=== PATIENT | female | born 1985 | race Two or more races ===

== ENCOUNTER 2021-05-06 20:35 | Emergency (ER) | payer MEDICAID, OTHER ==
[~2021-05-06] VITALS: Ht 157.5 cm; Wt 82.6 kg
[2021-05-06 20:41] VITALS: BP 124/80
[2021-05-06 21:19] LABS: Basophils # (auto) 0 10 ^3/uL (0-0.2); Basophils % (auto) 0.7 % (0.0-2.0); Eosinophils # (auto) 0.2 10 ^3/uL (0-0.8); Hematocrit 37.9 % (36.0-46.0); Hemoglobin 13.1 g/dL (12.2-16.2); Lymphocytes # (auto) 2.1 10 ^3/uL (0.4-5.4); Lymphocytes % (auto) 28.6 % (10.0-50.0); Mean Corpuscular Hemoglobin 30.7 pg (28.0-32.0); Mean Corpuscular Hgb Conc. 34.7 g/dL (32.0-36.0); Mean Corpuscular Volume 88.6 fL (80.0-100.0); Monocytes # (auto) 0.4 10 ^3/uL (0-1.3); Monocytes % (auto) 4.9 % (0.0-12.0); Neutrophils # (auto) 4.6 10 ^3/uL (1.6-8.6); Neutrophils % (auto) 62.8 % (37.0-80.0); Nucleated Red Blood Cells % 0.2 %; Platelet Count (auto) 229 10^3/uL (140-450); Red Blood Cells 4.27 10^6/uL (4.0-5.20); Red Cell Distribution Width 13.2 % (11.8-14.3); White Blood Cell 7.3 10^3/uL (4.4-10.8)
[2021-05-06 21:28] LABS: Albumin 3.3 g/dL (3.4-5.0); Calcium 9.5 mg/dL (8.5-10.1); Potassium 3.5 mmol/L (3.5-5.1)
[2021-05-06 21:33] LABS: Bilirubin, Total 0.3 mg/dL (0.2-1.0); Total Protein 6.7 g/dL (6.4-8.2)
[2021-05-06] MEDS ORDERED: KETOROLAC TROMETH 60MG/2ML VIAL IM ONE (22:30)
== END 2021-05-06 22:46 | disposition home or self-care (01) ==
LOC: ER 20:38
DX: G43.909 Migraine, unspecified, not intractable, without status migrainosus (principal)
CPT/HCPCS: 36415; 70450; 80053; 84702; 85025; 96372; 99284; J1885

== ENCOUNTER 2023-10-13 17:16 | Emergency (ER) | payer MEDICAID ==
[~2023-10-13] VITALS: Ht 157.5 cm; Wt 90.0 kg
[2023-10-13 17:30] VITALS: BP 119/65; PULSE 75; RESP 16; O2SAT 100
[2023-10-13 19:09] LABS: Urine Bacteria FEW /hpf (None Seen); Urine Blood Negative /uL (Negative); Urine Clarity Clear (Clear); Urine Color Yellow (Yellow); Urine Mucus FEW (None Seen); Urine Protein, UAD Negative (Negative); Urine Specific Gravity 1.027 (1.001-1.035); Urine Urobilinogen Normal (Negative); Urine WBC 1 /hpf (0 - 5); Urine pH 5.5 (5.0-8.0)
== END 2023-10-14 00:06 | disposition left against medical advice (07) ==
LOC: ER 17:16
DX: R10.9 Unspecified abdominal pain (principal); R30.9 Painful micturition, unspecified; Z53.21 Procedure and treatment not carried out due to patient leaving prior to being seen by health care provider
CPT/HCPCS: 81001

== ENCOUNTER 2024-02-01 09:31 | Emergency (ER) | payer MEDICAID ==
[~2024-02-01] VITALS: Ht 157.5 cm; Wt 88.9 kg
[2024-02-01 11:19] VITALS: TEMP 97.8; O2SAT 97
[2024-02-01 11:52] VITALS: BP 110/53; PULSE 67; RESP 18
[2024-02-01] MEDS: MORPHINE SULFATE 4 MG/ML SYR/VIAL IM ONE (11:52)
[2024-02-01] MEDS ORDERED: HYDR-4902 PO (12:02)
== END 2024-02-01 12:14 | disposition home or self-care (01) ==
LOC: ER 09:31
DX: S22.31XA Fracture of one rib, right side, initial encounter for closed fracture (principal); W17.89XA Other fall from one level to another, initial encounter; Y93.A3 Activity, aerobic and step exercise; Y92.89 Other specified places as the place of occurrence of the external cause; Y99.8 Other external cause status
CPT/HCPCS: 71101; 96372; 99283; J2270

== ENCOUNTER 2025-07-22 12:40 | Inpatient (IN) | payer MEDICAID, SELFPAY ==
[~2025-07-22] VITALS: Ht 157.5 cm; Wt 77.2 kg
[~2025-07-22 12:40] MED LIST: HYDR-4902 PO
--- NOTE | 2025-07-22 12:58 | ED.PDOC ---
History of Present Illness HPI Comments 39F presents to the ER w/ prior MHx of right sided kidney stones: SHx of C- section and the c/c of right sided flank pain. Pt reports on having chills this morning, then started to have right sided flank pain 20 minutes ago associated w/ N/V. Pt notes on having a 10/10 pain. Denies chills, fever, /D, SOB, CP. Denies any other associated symptom's, modifiers, or recent injuries or sick contact at this time. Chief Complaint: Flank Pain Time Seen by MD: 13:00 Primary Care Provider: ELIEL Reviewed Notes: Nurses Notes, Medications, Allergies Allergies: Coded Allergies: NO KNOWN ALLERGIES (Unverified , 05/06/21) Home Meds Active Scripts Hydrocodone-Acetaminophen (Hydrocodone Bitartrate/AC 5-325 mg) 1 Tab Tab, 1 TAB PO Q6HPRN PRN for 10 Days, #40 TAB 0 Refills Prov:JONNY TUCKER [employer] 02/01/24 Information Source: Patient Mode of Arrival: Ambulatory Severity: Moderate Timing: Minutes Duration: Since onset, Minutes Prehospital treatment: None Past Medical History PAST MEDICAL HISTORY: Kidney Stones (right side) Surgical History: MEDIATION COMMISSIONER History: No Pertinent MEDIATION COMMISSIONER History Family History Family History: Reviewed,noncontributory to illness, Unknown Social History Smoker: Non-Smoker Alcohol: Denies ETOH Use Drugs: Denies Drug Use Lives In: Home Constitutional: denies: chills, diaphoresis, fatigue, fever, malaise, sweats, weakness, others EENTM: denies: blurred vision, double vision, ear bleeding, ear discharge, ear drainage, ear pain, ear ringing, eye pain, eye redness, hearing loss, mouth pain, mouth swelling, nasal discharge, nose bleeding, nose congestion, nose pain, photophobia, tearing, throat pain, throat swelling, voice changes, others Respiratory: denies: cough, hemoptysis, orthopnea, SOB at rest, shortness of breath, SOB with excertion, stridor, wheezing, others Cardiovascular: denies: chest pain, dizzy spells, diaphoresis, Dyspnea on exertion, edema, irregular heart beat, left arm pain, lightheadedness, palpitations, PND, syncope, others Gastrointestinal: reports: nausea, vomiting; denies: abdomen distended, abdominal pain, blood streaked bowels, constipated, diarrhea, dysphagia, difficulty swallowing, hematemesis, melena, poor appetite, poor fluid intake, rectal bleeding, rectal pain, others Genitourinary: reports: flank pain; denies: abnormal vagina bleeding, burning, dyspareunia, dysuria, frequency, hematuria, incontinence, pain, , vagina discharge, urgency, others Neurological: denies: dizziness, fainting, headache, left sided numbness, left sided weakness, numbness, paresthesia, pre-existing deficit, right sided numbness, right sided weakness, seizure, speech problems, tingling, tremors, weakness, others Musculoskeletal: denies: back pain, gout, joint pain, joint swelling, muscle pain, muscle stiffness, neck pain, others Integumetry: denies: bruises, change in color, change in hair/nails, dryness, laceration, lesions, lumps, rash, wounds, others Allergic/Immunocompromised: denies: Difficulty Healing, Frequent Infections, Hives, Itching, others Hematologic/Lymphatic: denies: anemia, blood clots, easy bleeding, easy bruising, swollen glands, others Endocrine: denies: excessive hunger, excessive sweating, excessive thirst, excessive urination, flushing, intolerance to cold, intolerance to heat, unexplained weight gain, unexplained weight loss, others Psychiatric: denies: anxiety, bipolar disorder, depression, hopeless, panic disorder, schizophrenia, sleepless, suicidal, others All Other Systems: Reviewed and Negative Physical Exam General Appearance: Moderate Distress HEENT: Normal ENT Inspection, Pharynx Normal, TMs Normal Neck: Full Range of Motion, Non-Tender, Normal, Normal Inspection Respiratory: Chest Non-Tender, Lungs Clear, No Accessory Muscle Use, No Respiratory Distress, Normal Breath Sounds Cardiovascular: No Edema, No JVD, No Murmur, No Gallop, Normal Peripheral Pulses, Regular Rate/Rhythm Breast Exam: Deferred Gastrointestinal: No Organomegaly, Non Tender, No Pulsatile Mass, Normal Bowel Sounds, Soft Genitalia: Deferred Pelvic: Deferred Rectal: Deferred Extremities: No calf tenderness, Normal capillary refill, Normal inspection, Normal range of motion, Non-tender, No pedal edema Musculoskeletal : Location: Right Extremity Location: Back Apperance: Tenderness: Moderate Neurologic: Alert, sales representative canvas products II-XII nml as Tested, No Motor Deficits, Normal Affect, Normal Mood, No Sensory Deficits Cerebellar Function: Normal Reflexes: Normal Skin: Dry, Normal Color, Warm Lymphatic: No Adenopathy Was a procedure done? Was a procedure done?: No Differential Dx Considerations may include: Generalized weakness, electrolyte imbalance, dehydration X-Ray, Labs, Meds, VS Vital Signs Date Time Temp Pulse Resp B/P (MAP) Pulse Ox O2 Delivery O2 Flow Rate FiO2 07/22/25 13:32 99 15 142/56 07/22/25 13:30 Room Air* 0 21 07/22/25 13:30 98.1 56 15 142/51 (81) 99 98.1 07/22/25 12:41 98.0 77 18 145/86 97 98.0 Lab Test 07/22/25 14:06 07/22/25 13:14 Range/Units Urine Color Yellow Yellow Urine Clarity Turbid H Clear Urine pH 6.0 5.0-9.0 Urine Specific [place] 1.026 1.001-1.035 Urine Protein Trace H Negative Urine Ketones Negative Negative Urine Blood 2+ H Negative /uL Urine Nitrite Negative Negative Urine Bilirubin Negative Negative Urine Urobilinogen Normal Negative mg/dL Urine Leukocyte Esterase 1+ Negative /uL Urine RBC 26 0 - 4 /hpf Urine Microscopic WBC 30 H 0-5 /HPF Urine Squamous Epithelial Cells Mod <5 /hpf Urine Bacteria Few H None Seen /hpf Urine Mucus Few None Seen Urine Glucose Normal Normal mg/dL White Blood Count 6.7 4.4-10.8 10^3/uL Red Blood Count 4.71 4.0-5.20 10^6/uL Hemoglobin 14.3 12.2-16.2 g/dL Hematocrit 41.5 36.0-46.0 % Mean Corpuscular Volume 88.2 80.0-100.0 fL Mean Corpuscular Hemoglobin 30.3 28.0-32.0 pg Mean Corpuscular Hemoglobin Concent 34.4 32.0-36.0 g/dL Red Cell Distribution Width 13.3 11.8-14.3 % Platelet Count 239 140-450 10^3/uL Mean Platelet Volume 8.6 6.9-10.8 fL Neutrophils (%) (Auto) 69.6 37.0-80.0 % Lymphocytes (%) (Auto) 22.7 10.0-50.0 % Monocytes (%) (Auto) 5.8 0.0-12.0 % Eosinophils (%) (Auto) 1.3 0.0-7.0 % Basophils (%) (Auto) 0.6 0.0-2.0 % Neutrophils # (Auto) 4.7 1.6-8.6 10 ^3/uL Lymphocytes # (Auto) 1.5 0.4-5.4 10 ^3/uL Monocytes # (Auto) 0.4 0-1.3 10 ^3/uL Eosinophils # (Auto) 0.1 0-0.8 10 ^3/uL Basophils # (Auto) 0 0-0.2 10 ^3/uL Nucleated Red Blood Cells 0.0 % Sodium Level 142 136-145 mmol/L Potassium Level 3.8 3.5-5.1 mmol/L Chloride Level 108 H 98-107 mmol/L Carbon Dioxide Level 24 20-31 mmol/L Anion Gap 10 5-15 Blood Urea Nitrogen 10 9-23 mg/dL Creatinine 0.78 0.550-1.02 mg/dL Glomerular Filtration Rate Calc 98 >90 mL/min BUN/Creatinine Ratio 12.8 10.0-20.0 Serum Glucose 124 H 74-106 mg/dL Calcium Level 10.0 8.7-10.4 mg/dL Current Medications Medications (Trade) Dose Ordered Sig/Kisha Route Start Time Stop Time Status Last Admin Ondansetron HCl (Zofran) 4 mg ONCE ONCE IV 07/22/25 13:00 07/22/25 13:01 DC 07/22/25 13:33 Sodium Chloride 1,000 ml @ 1,000 mls/hr Q1H ONCE IVB 07/22/25 13:00 07/22/25 13:59 DC 07/22/25 13:33 Morphine Sulfate 4 mg ONCE ONCE IV 07/22/25 13:00 07/22/25 13:01 DC 07/22/25 13:32 Ketorolac Tromethamine (Toradol Injection) 30 mg ONCE ONCE IV 07/22/25 13:00 07/22/25 13:01 DC 07/22/25 13:33 IV Hep-Lock was established The patient was given a 1 L bolus of normal saline The patient was initially given ketorolac 60 mg IV push The patient was then given morphine 4 mg IV push and Zofran 4 mg IV push for the nausea The CBC is within normal limits The urine test is positive for UTI The chemistry panel is within normal limits The patient was given Rocephin 1 g IV piggyback The CAT scan of the abdomen and pelvis shows: IMPRESSION: Mild right hydro ureteronephrosis with a 3mm distal right ureteral kidney stone. Additional nonobstructive kidney stones are seen bilaterally. The patient is admitted Images Reviewed?: Images reviewed and evaluated by me Time of 1ST Reevaluation: 13:30 Reevaluation 1ST: Unchanged Patient Education/Counseling: Diagnosis, Treatment, Prognosis Family Education/Counseling: No Family Present SEPSIS Sepsis Screen Date sepsis recognized/suspect: Jul 22, 2025 Time Sepsis recognized/suspect: 1243 Recent Procedure: No On Antibiotic Therapy: No Respiratory Rate >20: No Heart Rate >90: No Temp<36 C (96.8 F) or >38.3 C: No SBP <90 or MAP <65 mmHG: No New Acute Mental Status Change: No Is the patient on CPAP, BIPAP,: No Physician Orders Ct Ab Pel Wo Con-No Oral Or Iv (07/22/25 12:51) Heplock Iv (07/22/25 12:51) Vital Signs Date Time Temp Pulse Resp B/P (MAP) Pulse Ox O2 Delivery O2 Flow Rate FiO2 07/22/25 13:32 99 15 142/56 07/22/25 13:30 Room Air* 0 21 07/22/25 13:30 98.1 56 15 142/51 (81) 99 98.1 07/22/25 12:41 98.0 77 18 145/86 97 98.0 Laboratory Tests Test 07/22/25 13:14 White Blood Count 6.7 10^3/uL (4.4-10.8) Medications Medications Dose Ordered Sig/Kisha Route Start Time Stop Time Status Last Admin Dose Admin Ketorolac Tromethamine 30 mg ONCE ONCE IV 07/22/25 13:00 07/22/25 13:01 DC 07/22/25 13:33 Morphine Sulfate 4 mg ONCE ONCE IV 07/22/25 13:00 07/22/25 13:01 DC 07/22/25 13:32 Ondansetron HCl 4 mg ONCE ONCE IV 07/22/25 13:00 07/22/25 13:01 DC 07/22/25 13:33 Sodium Chloride 1,000 ml @ 1,000 mls/hr Q1H ONCE IVB 07/22/25 13:00 07/22/25 13:59 DC 07/22/25 13:33 Departure 1 Departure Time of Disposition: 20:59 Impression: Primary Impression: Right flank pain Additional Impressions: Ureterolithiasis UTI (urinary tract infection) Qualified Codes: N30.01 - Acute cystitis with hematuria Disposition: ADMITTED INPATIENT Admit to: Med Surg Condition: Fair Critical Care Note Critical Care Time?: No Stability Stability form required: Yes Unstable for transfer: ED Physician Assesment (Clinical assesment) Heart Score Heart Score: Heart Score Response (Comments) Value History N/A 0 EKG N/A 0 Age N/A 0 Risk Factors N/A 0 Troponin N/A 0 Total 0 I personally scribed for LUANA WATTERS MD ([email or web address]) on 07/22/25 at 12:58. Electronically submitted by Robson Benites ([email or web address]). LUANA WATTERS MD Jul 22, 2025 12:58
--- NOTE | 2025-07-22 13:27 | DVH ---
CT CT AB PEL WO CON-NO ORAL OR IV INDICATION: right flank pain EXAM DATE: 07/22/2025 12:51 PM COMPARISON: None RADIATION DOSE: CTDIvol: 14 mGy, DLP: 750 mGy*cm PROCEDURE: Helical CT images were obtained of the abdomen and pelvis without IV contrast Sagittal and coronal reconstructions are provided. ORAL CONTRAST: None. ADDITIONAL IMAGES / REFORMATS: None All C T scans at this medical facility are performed using dose modulation techniques as appropriate to a p erformed exam including the following: Automated exposure control was utilized; adjustment of the MA and/or KV according to patient size; and use of iterative reconstruction technique. FINDINGS: LUNG BASE: Normal. LIVER: Normal. GALLBLADDER AND BILIARY TREE: No calcified gallstones. Normal caliber wall. No intra- or extrahepatic biliary ductal dilation. PANCREAS: Normal. SPLEEN: Normal. BOWEL: Normal. Normal appendix. ADRENALS: Normal. KIDNEYS AND URETER: Mild right hydro ureteronephrosis with a 3mm distal right ureteral kidney stone. Additional nonobstructive kidney stones are seen bilaterally. BLADDER: Normal. REPRODUCTIVE ORGANS: Normal. LYMPH NODES:No lymphadenopathy. PERITONEUM: No ascites or free air. No other fluid collection. VESSELS: Scattered atherosclerotic calcifications are noted. RETROPERITONEUM: Normal. ABDOMINAL WALL: Normal. BONES: Scattered osseous degenerative changes are noted. IMPRESSION: Mild right hydro ureteronephrosis with a 3mm distal right ureteral kidney stone. Additional nonobstru ctive kidney stones are seen bilaterally.
[2025-07-22] MEDS: MORPHINE SULFATE 4 MG/ML SYR/VIAL IV ONE (13:32)
[2025-07-22] MEDS: SODIUM CHLORIDE 0.9% 1,000 ML IVB ONE (13:33)
[2025-07-22] MEDS: KETOROLAC TROMETH 30 MG/ML 1ML VIAL IV ONE (13:33)
[2025-07-22] MEDS: ONDANSETRON HCL 4 MG/2 ML VIAL IV ONE (13:33)
[2025-07-22 13:39] LABS: Hematocrit 41.5 % (36.0-46.0); Hemoglobin 14.3 g/dL (12.2-16.2); Mean Corpuscular Hemoglobin 30.3 pg (28.0-32.0); Mean Corpuscular Volume 88.2 fL (80.0-100.0); Nucleated Red Blood Cells % 0.0 %
[2025-07-22 13:44] LABS: Potassium 3.8 mmol/L (3.5-5.1); Sodium 142 mmol/L (136-145)
[2025-07-22 13:45] LABS: Anion Gap 10 (5-15); Carbon Dioxide 24 mmol/L (20-31)
[2025-07-22 13:46] LABS: Calcium 10.0 mg/dL (8.7-10.4)
[2025-07-22 13:48] LABS: Chloride 108 mmol/L (98-107)
[2025-07-22 13:51] LABS: BUN/Creatinine Ratio 12.8 (10.0-20.0); Blood Urea Nitrogen 10 mg/dL (9-23); Glucose 124 mg/dL (74-106)
[2025-07-22 14:29] LABS: Urine Protein, UAD TRACE (Negative)
[2025-07-22] MEDS ORDERED: ACETAMINOPHEN 325 MG TAB PO PRN (19:30)
[2025-07-22 21:00] VITALS: BP 112/65; PULSE 68; RESP 19; TEMP 97.9; O2SAT 99
--- NOTE | 2025-07-22 21:36 | DVHHP2 ---
History of Present Illness Reason for Visit: Flank pain History of Present Illness 39-year-old female presents for evaluation of flank pain. Patient endorses a two day history of right-sided flank pain with associated chills. Patient also reports associated nausea with vomiting. Currently rates the pain at 8/10 intensity. No other acute complaints reported. Past Medical History Kidney stones Past Surgical History Family History Noncontributory Smoke: No ALCOHOL: none Drugs: None Lives: with Family Review of Systems Review of Systems Review of systems are currently negative otherwise addressed HPI. Allergies: Coded Allergies: NO KNOWN ALLERGIES (Unverified , 05/06/21) Medications Current Medications Medications Dose Ordered Sig/Kisha Route Start Time Stop Time Status Last Admin Dose Admin Tamsulosin HCl 0.4 mg QPM PO 07/23/25 18:00 Ceftriaxone Sodium 50 ml @ 100 mls/hr DAILY@ IV 07/23/25 09:00 Acetaminophen/ Hydrocodone Bitart 1 tab Q4HP PRN PO 07/22/25 19:30 Ondansetron HCl 4 mg Q4HP PRN IV 07/22/25 19:30 Acetaminophen 650 mg Q6HP PRN PO 07/22/25 19:30 Morphine Sulfate 2 mg Q6HPRN PRN IV 07/22/25 19:30 Ceftriaxone Sodium 50 ml @ 100 mls/hr DAILY@ IV 07/23/25 09:00 Exam Vital Signs Vital Signs Date Time Temp Pulse Resp B/P (MAP) Pulse Ox O2 Delivery O2 Flow Rate FiO2 07/22/25 13:32 99 15 142/56 07/22/25 13:30 Room Air* 0 21 07/22/25 13:30 98.1 99 98.1 Exam Gen: The patient eustachian 39-year-old female in mild distress. Skin: Warm, dry, normal color and texture, no rash. HEENT: Normocephalic atraumatic, mucous membranes moist and pink. Neck: Cervical and supraclavicular nodes normal without enlargement, trachea is midline, thyroid gland is normal without masses. Pulmonary: Clear to auscultation and percussion bilaterally. Cardiac: Regular rate and rhythm. No murmur Abdomen: Soft, nontender, nondistended, bowel sounds present all 4 quadrants, no guarding, no rigidity, no organomegaly. Extremities: No cyanosis, clubbing, no edema Neuro: Cranial nerves II through XII grossly intact, normal affect and speech, no focal motor deficits. Labs/Xrays ORDERING PHYSICIAN: LUANA WATTERS MD PROCEDURE(s): ABPL - CT AB PEL WO CON-NO ORAL OR IV REASON: right flank pain ORDER NUMBER(s): [id number], ACCESSION NUMBER(s): [id number] CT CT AB PEL WO CON-NO ORAL OR IV INDICATION: right flank pain EXAM DATE: 07/22/2025 12:51 PM COMPARISON: None RADIATION DOSE: CTDIvol: 14 mGy, DLP: 750 mGy*cm PROCEDURE: Helical CT images were obtained of the abdomen and pelvis without IV contrast Sagittal and coronal reconstructions are provided. ORAL CONTRAST: None. ADDITIONAL IMAGES / REFORMATS: None All CT scans at this medical facility are performed using dose modulation techniques as appropriate to a performed exam including the following: Automated exposure control was utilized; adjustment of the MA and/or KV according to patient size; and use of iterative reconstruction technique. FINDINGS: LUNG BASE: Normal. LIVER: Normal. GALLBLADDER AND BILIARY TREE: No calcified gallstones. Normal caliber wall. No intra- or extrahepatic biliary ductal dilation. PANCREAS: Normal. SPLEEN: Normal. BOWEL: Normal. Normal appendix. ADRENALS: Normal. KIDNEYS AND URETER: Mild right hydro ureteronephrosis with a 3mm distal right ureteral kidney stone. Additional nonobstructive kidney stones are seen bilaterally. BLADDER: Normal. REPRODUCTIVE ORGANS: Normal. LYMPH NODES:No lymphadenopathy. PERITONEUM: No ascites or free air. No other fluid collection. VESSELS: Scattered atherosclerotic calcifications are noted. RETROPERITONEUM: Normal. ABDOMINAL WALL: Normal. BONES: Scattered osseous degenerative changes are noted. IMPRESSION: Mild right hydro ureteronephrosis with a 3mm distal right ureteral kidney stone. Additional nonobstructive kidney stones are seen bilaterally. Labs Test 07/22/25 14:06 07/22/25 13:14 Range/Units Urine Color Yellow Yellow Urine Clarity Turbid H Clear Urine pH 6.0 5.0-9.0 Urine Specific [place] 1.026 1.001-1.035 Urine Protein Trace H Negative Urine Ketones Negative Negative Urine Blood 2+ H Negative /uL Urine Nitrite Negative Negative Urine Bilirubin Negative Negative Urine Urobilinogen Normal Negative mg/dL Urine Leukocyte Esterase 1+ Negative /uL Urine RBC 26 0 - 4 /hpf Urine Microscopic WBC 30 H 0-5 /HPF Urine Squamous Epithelial Cells Mod <5 /hpf Urine Bacteria Few H None Seen /hpf Urine Mucus Few None Seen Urine Glucose Normal Normal mg/dL White Blood Count 6.7 4.4-10.8 10^3/uL Red Blood Count 4.71 4.0-5.20 10^6/uL Hemoglobin 14.3 12.2-16.2 g/dL Hematocrit 41.5 36.0-46.0 % Mean Corpuscular Volume 88.2 80.0-100.0 fL Mean Corpuscular Hemoglobin 30.3 28.0-32.0 pg Mean Corpuscular Hemoglobin Concent 34.4 32.0-36.0 g/dL Red Cell Distribution Width 13.3 11.8-14.3 % Platelet Count 239 140-450 10^3/uL Mean Platelet Volume 8.6 6.9-10.8 fL Neutrophils (%) (Auto) 69.6 37.0-80.0 % Lymphocytes (%) (Auto) 22.7 10.0-50.0 % Monocytes (%) (Auto) 5.8 0.0-12.0 % Eosinophils (%) (Auto) 1.3 0.0-7.0 % Basophils (%) (Auto) 0.6 0.0-2.0 % Neutrophils # (Auto) 4.7 1.6-8.6 10 ^3/uL Lymphocytes # (Auto) 1.5 0.4-5.4 10 ^3/uL Monocytes # (Auto) 0.4 0-1.3 10 ^3/uL Eosinophils # (Auto) 0.1 0-0.8 10 ^3/uL Basophils # (Auto) 0 0-0.2 10 ^3/uL Nucleated Red Blood Cells 0.0 % Sodium Level 142 136-145 mmol/L Potassium Level 3.8 3.5-5.1 mmol/L Chloride Level 108 H 98-107 mmol/L Carbon Dioxide Level 24 20-31 mmol/L Anion Gap 10 5-15 Blood Urea Nitrogen 10 9-23 mg/dL Creatinine 0.78 0.550-1.02 mg/dL Glomerular Filtration Rate Calc 98 >90 mL/min BUN/Creatinine Ratio 12.8 10.0-20.0 Serum Glucose 124 H 74-106 mg/dL Calcium Level 10.0 8.7-10.4 mg/dL SEPSIS Sepsis Screen Date sepsis recognized/suspect: Jul 22, 2025 Time Sepsis recognized/suspect: 1242 Recent Procedure: No On Antibiotic Therapy: No Respiratory Rate >20: No Heart Rate >90: No Temp<36 C (96.8 F) or >38.3 C: No SBP <90 or MAP <65 mmHG: No New Acute Mental Status Change: No Is the patient on CPAP, BIPAP,: No Physician Orders Tamsulosin Hydrochloride (Flomax) (07/23/25 18:00) * Urology Consult (07/22/25 19:29) Ceftriaxone 1gm/50ml D5w (Rocephin) (07/23/25 09:00) Basic Metabolic Panel (07/23/25 04:00) Admit (07/22/25 19:29) Hydrocodone-Acet 5/325mg Tab ([place] 5/32 (07/22/25 19:30) Ondansetron Hcl (Zofran) (07/22/25 19:30) Complete Blood Count (07/23/25 04:00) Condition: Stable (07/22/25 19:29) Acetaminophen Tablet (Tylenol Tablet) (07/22/25 19:30) Bedrest With Bathroom Privileg (07/22/25 19:29) Morphine Sulfate Injection (07/22/25 19:30) Regular Diet (07/23/25 Breakfast) Ceftriaxone 1gm/50ml D5w (Rocephin) (07/23/25 09:00) Laboratory Tests Test 07/22/25 13:14 White Blood Count 6.7 10^3/uL (4.4-10.8) Medications Medications Dose Ordered Sig/Kisha Route Start Time Stop Time Status Last Admin Dose Admin Ketorolac Tromethamine 30 mg ONCE ONCE IV 07/22/25 13:00 07/22/25 13:01 DC 07/22/25 13:33 30 MG Morphine Sulfate 4 mg ONCE ONCE IV 07/22/25 13:00 07/22/25 13:01 DC 07/22/25 13:32 4 MG Ondansetron HCl 4 mg ONCE ONCE IV 07/22/25 13:00 07/22/25 13:01 DC 07/22/25 13:33 4 MG Sodium Chloride 1,000 ml @ 1,000 mls/hr Q1H ONCE IVB 07/22/25 13:00 07/22/25 13:59 DC 07/22/25 13:33 1,000 MLS/HR Assessment/Plan Assessment/Plan Assessment Obstructive uropathy Right ureter nephrosis Urinary tract infection Plan Admit the patient to [facility] surge to the hospitalist Urology consultation Rocephin Pain management Continue treatment per orders. Plan discussed with: Patient My Orders Orders - NADYA CANAS Procedure Category Date Status Time Tamsulosin PHA 07/23/25 In Process Hydrochloride (Flomax) 18:00 * Urology Consult CONS 07/22/25 Transmitted 19:29 Ceftriaxone 1gm/50ml PHA 07/23/25 In Process D5w (Rocephin) 09:00 Basic Metabolic Panel LAB 07/23/25 Verified 04:00 Admit ADMIT 07/22/25 Transmitted 19:29 Hydrocodone-Acet PHA 07/22/25 In Process 5/325mg Tab ([place] 19:30 Ondansetron Hcl PHA 07/22/25 In Process (Zofran) 19:30 Complete Blood Count LAB 07/23/25 Verified 04:00 Condition: Stable HAWK 07/22/25 In Process 19:29 Acetaminophen Tablet PHA 07/22/25 In Process (Tylenol Tablet) 19:30 Bedrest With Bathroom HAWK 07/22/25 In Process Privileg 19:29 Morphine Sulfate PHA 07/22/25 In Process Injection 19:30 Regular Diet DIET 07/23/25 Transmitted Breakfast Date of Service: Jul 22, 2025 Billing Provider: NADYA CANAS Common Visit Codes: [id number] INP/OBS CARE (MOD) NADYA CANAS Jul 22, 2025 21:36
[2025-07-22] MEDS: HYDROcodone-ACET 5/325MG TAB PO PRN (22:59)
[2025-07-22] MEDS: SODIUM CHLORIDE 0.9% 500 ML IV ONE (23:13)
[2025-07-23] VITALS (7 sets, daily range): BP systolic 93–126; BP diastolic 50–78; PULSE 60–97; RESP 16–20; TEMP 98–98.7; O2SAT 93–99
[2025-07-23 04:49] LABS: Hematocrit 37.0 % (36.0-46.0); Hemoglobin 12.6 g/dL (12.2-16.2); Mean Corpuscular Hemoglobin 30.1 pg (28.0-32.0); Mean Corpuscular Volume 88.6 fL (80.0-100.0); Nucleated Red Blood Cells % 0.0 %
[2025-07-23 05:08] LABS: Potassium 3.8 mmol/L (3.5-5.1); Sodium 140 mmol/L (136-145)
[2025-07-23 05:09] LABS: Anion Gap 8 (5-15); Carbon Dioxide 23 mmol/L (20-31)
[2025-07-23 05:10] LABS: Calcium 9.5 mg/dL (8.7-10.4)
[2025-07-23 05:11] LABS: Chloride 109 mmol/L (98-107)
[2025-07-23 05:14] LABS: BUN/Creatinine Ratio 13.1 (10.0-20.0); Glucose 105 mg/dL (74-106)
[2025-07-23 05:20] LABS: Blood Urea Nitrogen 8 mg/dL (9-23)
[2025-07-23] MEDS: ONDANSETRON HCL 4 MG/2 ML VIAL IV PRN (05:56)
[2025-07-23] MEDS: MORPHINE SULFATE INJ 2 MG/ml SYRG IV PRN (05:59)
[2025-07-23] MEDS ORDERED: MANNITOL 20% SOLN 100 gm/500ml 500 ML IV ONE (07:30)
[2025-07-23 08:18] LABS: Alanine Aminotransferase 15.0 U/L (7-40); Albumin 3.8 g/dL (3.2-4.8); Alkaline Phosphatase 74.0 U/L (46-116); Bilirubin, Total 1.1 mg/dL (0.2-1.0); Total Protein 6.5 g/dL (5.7-8.2)
[2025-07-23 08:44] LABS: Bilirubin, Direct 0.4 mg/dL (<0.3)
[2025-07-23 08:46] LABS: Amphetamine Screen, Urine Neg (NEGATIVE); Barbiturate Scree,Urine Neg (NEGATIVE); Benzodiazephine Screen, Urine Neg (NEGATIVE); Cannabinoid Screen, Urine Neg (NEGATIVE); Cocaine Screen, Urine Neg (NEGATIVE); Opiate Scree,Urine Neg (NEGATIVE); Phencyclidine Screen, Urine Neg (NEGATIVE)
[2025-07-23] MEDS: SODIUM CHLORIDE 0.9% 2,000 ML IV ONE (08:57)
[2025-07-23] MEDS: SODIUM CHLORIDE 0.9% 1,000 ML IV SCH (10:06)
--- NOTE | 2025-07-23 10:18 | DVHPNRES ---
Progress Note Date Seen: Jul 23, 2025 Resident Creating Document: KIMBERLY ROJAS RESIDENT Medical Necessity Reason Pt with a Central, PICC or Fol: No Subjective Review of Systems Patient is 39 years old female with a past medical history of kidney stone came with a complaint of right flank pain going on for 2 days, worsening pain, 8/10, SCD chill and nausea and vomiting, no blood. Patient reports some dysuria but no blood in urine or fever. Urinalysis revealed leukocyte esterase 1+, WBC 30, RBC 26, bacteria few. UDS negative. CT abdomen and pelvis revealed- Mild right hydro ureteronephrosis with a 3mm distal right ureteral kidney stone. Additional nonobstructive kidney stones are seen bilaterally. [id number] PSH- Allergy- NKDA Personal History/ Social History- Patient was seen today at the bedside. Cardiovascular- deny acute chest pain or shortness of breath or cough or palpitation Respiratory denies cough or short of breath or wheezing Musculoskeletal-denies acute joint swelling or tenderness or redness Neurological- denies acute dysarthria, dysphagia, change in vision Psychiatry- denies depression or SI or HI Skin- denies acute rash or purpura Objective vital signs Vital Sign Date Time Temp Pulse Resp B/P (MAP) Pulse Ox O2 Delivery O2 Flow Rate FiO2 07/23/25 06:29 65 16 103/56 07/23/25 05:00 98.1 93 98.1 07/22/25 13:30 Room Air* 0 21 Total Intake and Output 07/22/25 07/22/25 07/23/25 15:00 23:00 07:00 Intake Total 550 ml Balance 550 ml medications Current Medications Medications Dose Ordered Sig/Kisha Route Start Time Stop Time Status Last Admin Dose Admin Tamsulosin HCl 0.4 mg QPM PO 07/23/25 18:00 Ceftriaxone Sodium 50 ml @ 100 mls/hr DAILY@09 IV 07/23/25 09:00 07/23/25 08:51 100 MLS/HR Acetaminophen/ Hydrocodone Bitart 1 tab Q4HP PRN PO 07/22/25 19:30 07/23/25 10:05 1 TAB Ondansetron HCl 4 mg Q4HP PRN IV 07/22/25 19:30 07/23/25 05:56 4 MG Acetaminophen 650 mg Q6HP PRN PO 07/22/25 19:30 Morphine Sulfate 2 mg Q6HPRN PRN IV 07/22/25 19:30 07/23/25 05:59 2 MG Sodium Chloride 1,000 ml @ 125 mls/hr Q8H IV 07/23/25 09:00 07/23/25 10:06 125 MLS/HR Examination General examination- awake, alert, oriented HEENT- PEERLA, no acute nasal discharge Cardiovascular- S1-S2 audible, rate and rhythm regular, no murmur Respiratory- CTAB, no wheeze or rhonchi Gastrointestinal-right lower abdominal tendernes++, bowel sound+. Nondistended, Renal system-right lower abdomen and right flank tenderness positive Musculoskeletal-no acute joint swelling or tenderness or redness Lower extremity- no leg edema Neurological- cranial nerves intact, no acute dysarthria or dysphagia Psychiatry- denies depression or SI or HI Skin- no acute rash or purpura laboratory and microbiology Laboratory Tests 07/23/25 04:18 Test 07/23/25 04:18 Range/Units Serum Glucose 105 74-106 mg/dL Problem List/Assessment/Plan Problem List/Assessment/Plan Assessment and plan # intractable right flank pain likely due to nephrolithiasis, obstructing right ureteric stone # bilateral nephrolithiasis # mild right hydroureteronephrosis -CT abdomen and pelvis revealed-Mild right hydro ureteronephrosis with a 3mm distal right ureteral kidney stone. Additional nonobstructive kidney stones are seen bilaterally. - continue IV fluid as prescribed -ordered mannitol -continue tamsulosin as prescribed -pending Urology consult -strain all urine # intractable nausea and vomiting likely due to intractable pain from nephrolithiasis -continue pain medication as prescribed -Zofran p.r.n. as prescribed # UTI -continue ceftriaxone 1 g IV daily -ordered IV fluid -pending urine culture # obesity -patient is counseled about the effect of obesity on health, weight reduction, physical activity, healthy diet Goals of care, Code status full code ; discussed with >15 minutes PUD prophylaxis: Pantoprazole DVT prophylaxis: No acute indication Plan discussed with Dr. Longoria , nursing staff, Total time spent on patient evaluation, chart review, assessment and plan, discussion discussion >35 minutes Plan discussed with: Patient, Other (RN) My Orders My Orders Orders - KIMBERLY ROJAS RESIDENT Procedure Category Date Status Time Sodium Chloride 0.9% PHA 07/23/25 In Process 07:30 Urine Bacterial FERNANDO 07/23/25 In Process Culture 07:29 Thyroid Stimulating LAB 07/23/25 In Process Hormone 07:33 Hemoglobin A1c LAB 07/23/25 In Process 07:33 Vitamin B12 LAB 07/23/25 In Process 07:33 Vitamin D, 25-Hydroxy LAB 07/23/25 In Process 07:33 Folate (Folic Acid) LAB 07/24/25 Verified 04:00 KIMBERLY ROJAS RESIDENT Jul 23, 2025 10:18
--- NOTE | 2025-07-23 14:25 | DVH ---
RENAL ULTRASOUND History: Nephrolithiasis/flank pain Comparison: None Technique: Multiple real-time sonographic images of the kidney and bladder were obtained in conjuncti on with Doppler imaging. Findings: The right kidney measures 11.1 cm and demonstrates no evidence of hydronephrosis, perinephric fluid c ollection, or shadowing stone. The left kidney measures 10.6 cm and demonstrates no evidence of hydronephrosis, perinephric fluid co llection, or shadowing stone. Urinary bladder: Prevoid urinary bladder volume is 35 mL. Limited characterization. Impression: No hydronephrosis.
[2025-07-23] MEDS: TAMSULOSIN HYDROCHLORIDE 0.4 MG CAP PO SCH (18:12)
[2025-07-24 01:00] VITALS: BP 107/68; PULSE 69; RESP 20; TEMP 97.5; O2SAT 98
[2025-07-24 05:00] VITALS: BP 127/63; PULSE 116; RESP 18; TEMP 97.3; O2SAT 94
[2025-07-24 07:32] LABS: Hematocrit 36.1 % (36.0-46.0); Hemoglobin 12.3 g/dL (12.2-16.2); Mean Corpuscular Hemoglobin 30.1 pg (28.0-32.0); Mean Corpuscular Volume 88.1 fL (80.0-100.0); Nucleated Red Blood Cells % 0.1 %
[2025-07-24 07:47] LABS: Alanine Aminotransferase 12 U/L (7-40); Albumin 3.6 g/dL (3.2-4.8); Alkaline Phosphatase 65 U/L (46-116); Anion Gap 7 (5-15); BUN/Creatinine Ratio 11.3 (10.0-20.0); Bilirubin, Total 0.5 mg/dL (0.2-1.0); Calcium 9.5 mg/dL (8.7-10.4); Carbon Dioxide 25 mmol/L (20-31); Glucose 94 mg/dL (74-106); Magnesium 1.8 mg/dL (1.6-2.6); Potassium 4.1 mmol/L (3.5-5.1); Sodium 141 mmol/L (136-145); Total Protein 6.1 g/dL (5.7-8.2)
[2025-07-24 07:50] LABS: Blood Urea Nitrogen 7 mg/dL (9-23); Chloride 109 mmol/L (98-107)
[2025-07-24 08:00] VITALS: PULSE 116; RESP 20; O2SAT 99
[2025-07-24 09:00] VITALS: BP 106/64; PULSE 73; RESP 17; TEMP 98.1; O2SAT 97
[2025-07-24] MEDS: ERGOCALCIFEROL 50,000 UNIT(1.25MG) CAP PO SCH (09:10)
--- NOTE | 2025-07-24 09:17 | DVHDSRES ---
Discharge Summary Date of Admission Resident Creating Document: KIMBERLY ROJAS RESIDENT Jul 22, 2025 at 19:29 Date of Discharge: Jul 24, 2025 Labs/Diagnostic Data: Laboratory Results Test 07/24/25 07:00 07/23/25 04:18 07/22/25 14:06 07/22/25 12:51 White Blood Count 5.1 10^3/uL (4.4-10.8) Red Blood Count 4.09 10^6/uL (4.0-5.20) Hemoglobin 12.3 g/dL (12.2-16.2) Hematocrit 36.1 % (36.0-46.0) Mean Corpuscular Volume 88.1 fL (80.0-100.0) Mean Corpuscular Hemoglobin 30.1 pg (28.0-32.0) Mean Corpuscular Hemoglobin Concent 34.1 g/dL (32.0-36.0) Red Cell Distribution Width 13.3 % (11.8-14.3) Platelet Count 191 10^3/uL (140-450) Mean Platelet Volume 8.6 fL (6.9-10.8) Neutrophils (%) (Auto) 65.1 % (37.0-80.0) Lymphocytes (%) (Auto) 23.4 % (10.0-50.0) Monocytes (%) (Auto) 8.3 % (0.0-12.0) Eosinophils (%) (Auto) 2.6 % (0.0-7.0) Basophils (%) (Auto) 0.6 % (0.0-2.0) Neutrophils # (Auto) 3.3 10 ^3/uL (1.6-8.6) Lymphocytes # (Auto) 1.2 10 ^3/uL (0.4-5.4) Monocytes # (Auto) 0.4 10 ^3/uL (0-1.3) Eosinophils # (Auto) 0.1 10 ^3/uL (0-0.8) Basophils # (Auto) 0 10 ^3/uL (0-0.2) Nucleated Red Blood Cells 0.1 % Sodium Level 141 mmol/L (136-145) Potassium Level 4.1 mmol/L (3.5-5.1) Chloride Level 109 mmol/L (98-107) Carbon Dioxide Level 25 mmol/L (20-31) Anion Gap 7 (5-15) Blood Urea Nitrogen 7 mg/dL (9-23) Creatinine 0.62 mg/dL (0.550-1.02) Glomerular Filtration Rate Calc 115 mL/min (>90) BUN/Creatinine Ratio 11.3 (10.0-20.0) Serum Glucose 94 mg/dL (74-106) Calcium Level 9.5 mg/dL (8.7-10.4) Magnesium Level 1.8 mg/dL (1.6-2.6) Total Bilirubin 0.5 mg/dL (0.2-1.0) Aspartate Amino Transferase (AST) 15 U/L (13-40) Alanine Aminotransferase (ALT) 12 U/L (7-40) Alkaline Phosphatase 65 U/L (46-116) Total Protein 6.1 g/dL (5.7-8.2) Albumin 3.6 g/dL (3.2-4.8) Hemoglobin A1c 5.3 % A1C (<5.7) Direct Bilirubin 0.4 mg/dL (<0.3) Vitamin B12 Level 469 pg/mL (211-911) Vitamin D 25-Hydroxy 26.9 ng/mL (30.0-100) Thyroid Stimulating Hormone (TSH) 2.29 uIU/mL (0.55-4.78) Urine Color Yellow (Yellow) Urine Clarity Turbid (Clear) Urine pH 6.0 (5.0-9.0) Urine Specific [place] 1.026 (1.001-1.035) Urine Protein Trace (Negative) Urine Ketones Negative (Negative) Urine Blood 2+ /uL (Negative) Urine Nitrite Negative (Negative) Urine Bilirubin Negative (Negative) Urine Urobilinogen Normal mg/dL (Negative) Urine Leukocyte Esterase 1+ /uL (Negative) Urine RBC 26 /hpf (0 - 4) Urine Microscopic WBC 30 /HPF (0-5) Urine Squamous Epithelial Cells Mod /hpf (<5) Urine Bacteria Few /hpf (None Seen) Urine Mucus Few (None Seen) Urine Glucose Normal mg/dL (Normal) Urine Opiates Screen Neg (NEGATIVE) Urine Fentanyl Screen Neg (NEGATIVE) Urine Barbiturates Screen Neg (NEGATIVE) Urine Phencyclidine Screen Neg (NEGATIVE) Urine Amphetamines Screen Neg (NEGATIVE) Urine Benzodiazepines Screen Neg (NEGATIVE) Urine Cocaine Screen Neg (NEGATIVE) Urine Cannabinoids Screen Neg (NEGATIVE) Other Laboratory Tests 07/24/25 07:00 Brief Hx & Hospital Course: Patient is 39 years old female with a past medical history of kidney stone came with a complaint of right flank pain going on for 2 days, worsening pain, 8/10, SCD chill and nausea and vomiting, no blood. Patient reports some dysuria but no blood in urine or fever. Urinalysis revealed leukocyte esterase 1+, WBC 30, RBC 26, bacteria few. UDS negative. CT abdomen and pelvis revealed- Mild right hydro ureteronephrosis with a 3mm distal right ureteral kidney stone. Additional nonobstructive kidney stones are seen bilaterally. Hospital course- during hospital course patient was treated conservatively with IV fluid, Flomax, mannitol. Patient's past urine. Patient was also found to have UTI, treated with IV antibiotic ceftriaxone. Patient's symptom improved. Ultrasound was negative for hydronephrosis. Patient is being discharged home with the Keflex 500 mg p.o. b.i.d. for 5 days. Patient was advised to follow up with the primary care physician in 1 week. Patient's meds were sent to the pharmacy electronically. Patient is hemodynamically stable on discharge. Assessment # intractable right flank pain likely due to nephrolithiasis, obstructing right ureteric stone # bilateral nephrolithiasis # mild right hydroureteronephrosis # intractable nausea and vomiting likely due to intractable pain from nephrolithiasis # UTI # obesity Plan Keflex 500 mg p.o. b.i.d. for 5 days. Ibuprofen 400 mg p.o. t.i.d. PRN for 2 weeks Pantoprazole 20 mg p.o. daily for 2 weeks Please follow up with the primary care physician in 1 week Operations or Procedures [place] [address] Ph: [phone] DIAGNOSTIC IMAGING Diagnostic Imaging Report : [id number] Signed PATIENT: CHAGO RIOS ACCT: [id number] UNIT: [id number] : 1985 LOC: ER ROOM / BED: / AGE / SEX: 39 / F ADM STATUS: REG ER SERVICE 1251 ORDERING PHYSICIAN: LUANA WATTERS MD PROCEDURE(s): ABPL - CT AB PEL WO CON-NO ORAL OR IV REASON: right flank pain ORDER NUMBER(s): [id number], ACCESSION NUMBER(s): [id number] CT CT AB PEL WO CON-NO ORAL OR IV INDICATION: right flank pain EXAM DATE: 07/22/2025 12:51 PM COMPARISON: None RADIATION DOSE: CTDIvol: 14 mGy, DLP: 750 mGy*cm PROCEDURE: Helical CT images were obtained of the abdomen and pelvis without IV contrast Sagittal and coronal reconstructions are provided. ORAL CONTRAST: None. ADDITIONAL IMAGES / REFORMATS: None All CT scans at this medical facility are performed using dose modulation techniques as appropriate to a performed exam including the following: Automated exposure control was utilized; adjustment of the MA and/or KV according to patient size; and use of iterative reconstruction technique. FINDINGS: LUNG BASE: Normal. LIVER: Normal. GALLBLADDER AND BILIARY TREE: No calcified gallstones. Normal caliber wall. No intra- or extrahepatic biliary ductal dilation. PANCREAS: Normal. SPLEEN: Normal. BOWEL: Normal. Normal appendix. ADRENALS: Normal. KIDNEYS AND URETER: Mild right hydro ureteronephrosis with a 3mm distal right ureteral kidney stone. Additional nonobstructive kidney stones are seen bilaterally. BLADDER: Normal. REPRODUCTIVE ORGANS: Normal. LYMPH NODES:No lymphadenopathy. PERITONEUM: No ascites or free air. No other fluid collection. VESSELS: Scattered atherosclerotic calcifications are noted. RETROPERITONEUM: Normal. ABDOMINAL WALL: Normal. BONES: Scattered osseous degenerative changes are noted. IMPRESSION: Mild right hydro ureteronephrosis with a 3mm distal right ureteral kidney stone. Additional nonobstructive kidney stones are seen bilaterally. ATED BY: MANDO BARRIOS MD DICTATED DATE/TIME: 07/22/251323 SIGNED BY: MANDO BARRIOS MD SIGNED DATE/TIME: 07/22/251323 CC: [place] [address] Ph: [phone] DIAGNOSTIC IMAGING Diagnostic Imaging Report : [id number] Signed PATIENT: CHAGO RIOS ACCT: [id number] UNIT: [id number] : 1985 [facility]GE / SEX: 39 / F ADM STATUS: ADM IN SERVICE 1337 ORDERING PHYSICIAN: KIMBERLY ROJAS RESIDENT PROCEDURE(s): KIDUS - KIDNEY REASON: Nephrolithiasis/flank pain ORDER NUMBER(s): [id number], ACCESSION NUMBER(s): [id number] RENAL ULTRASOUND History: Nephrolithiasis/flank pain Comparison: None Technique: Multiple real-time sonographic images of the kidney and bladder were obtained in conjunction with Doppler imaging. Findings: The right kidney measures 11.1 cm and demonstrates no evidence of hydronephrosis, perinephric fluid collection, or shadowing stone. The left kidney measures 10.6 cm and demonstrates no evidence of hydronephrosis, perinephric fluid collection, or shadowing stone. Urinary bladder: Prevoid urinary bladder volume is 35 mL. Limited characterization. Impression: No hydronephrosis. ATED BY: MENG FATIMA MD DICTATED DATE/TIME: 07/23/251424 SIGNED BY: MENG FATIMA MD SIGNED DATE/TIME: 07/23/25 142 CC: Condition at Discharge: Stable Final Diagnosis/Problems List # intractable right flank pain likely due to nephrolithiasis, obstructing right ureteric stone # bilateral nephrolithiasis # mild right hydroureteronephrosis # intractable nausea and vomiting likely due to intractable pain from nephrolithiasis # UTI # obesity Discharge Disposition: Home Discharge Instruct/Medications Diet: Regular Diet comment: Please drink plenty of water Activity: No Restrictions, As Tolerated Follow Up/Referral: Please follow up with the primary care physician in 1 week Medications: Ibuprofen 400 mg p.o. t.i.d. PRN for 2 weeks Keflex 500 mg p.o. b.i.d. for 5 days Pantoprazole 40 mg p.o. daily for 2 weeks Scheduled Cephalexin Monohydrate (Cephalexin), 1 CAP PO BID Pantoprazole Sodium Sesquihydr (Pantoprazole Sodium), 20 MG PO DAILY Scheduled PRN Hydrocodone-Acetaminophen (Hydrocodone Bitartrate/AC 5-325 mg), 1 TAB PO Q6HPRN PRN Ibuprofen (Ibuprofen), 1 TAB PO TID PRN Discharge Statement: "Patient was advised to return to the ER or call 911 if any headaches, dizziness, shortness of breath, chest pain, abdominal pain, bleeding, fevers, or worsening of medical condition. Patient was counseled about treatment plan, medications, possible side effects, patientverbalized understanding. All questions were answered to the best of my ability. This discharge took greater then 30 minutes in planning, reviewing documentation, counseling the patient, and discussing with other team members." ASSESSMENT ASSESSMENT Assessment # intractable right flank pain likely due to nephrolithiasis, obstructing right ureteric stone # bilateral nephrolithiasis # mild right hydroureteronephrosis # intractable nausea and vomiting likely due to intractable pain from nephrolithiasis # UTI # obesity KIMBERLY ROJAS RESIDENT Jul 24, 2025 09:17
[2025-07-24] MEDS ORDERED: IBUP-1453 PO (09:19)
[2025-07-24] MEDS ORDERED: PANT40T PO (09:19)
[2025-07-24 09:45] VITALS: BP 121/69; PULSE 87; RESP 17
[2025-07-24] MEDS ORDERED: CEPH500C PO (12:34)
== END 2025-07-24 10:43 | disposition home or self-care (01) | DRG 690 ==
LOC: ER 12:40 → OVERFLOW 19:29 → WEST WING 07-23 16:35
PROVIDERS: ADMIT Student in an Organized Health Care Education/Training Program; ATTEND Student in an Organized Health Care Education/Training Program
DX: N13.6 Pyonephrosis (principal); E66.9 Obesity, unspecified; Z98.891 History of uterine scar from previous surgery; Z79.899 Other long term (current) drug therapy; Z68.31 Body mass index [BMI] 31.0-31.9, adult
CPT/HCPCS: 36415; 74176; 76775; 80048; 80053; 80076; 80307; 81001; 82306; 82607; 82746; 83036; 83735; 84443; 85025; 87086; 96361; 96374; 96375; G0378; J1885; J2405

== ENCOUNTER 2025-09-22 13:39 | Inpatient (IN) | payer SELFPAY ==
[~2025-09-22] VITALS: Ht 157.5 cm; Wt 84.4 kg
[~2025-09-22 13:39] MED LIST changes: +CEPH500C PO; +IBUP-1453 PO; +PANT40T PO
--- NOTE | 2025-09-22 14:44 | ED.PDOC ---
History of Present Illness HPI Comments 39-year-old, obese female presents with chief complaint of epigastric abdominal pain. Patients reports on pain worsening, suddenly, over the past 2 days following initial, unprovoked and atraumatic onset of 09/17/2025. Pain radiates, directly, to her back and is rated a 10/10 in severity. Patient also endorses on vomiting 1x, yesterday, only. No reported recent prior ailments, sick contact exposure, spoiled food consumption, travel, or further pertinent events/medical or surgical history. Denies any nausea, vomiting, diarrhea, constipation, urinary problems, or further acute symptoms. Chief Complaint: Abdominal Pain Time Seen by MD: 14:20 Primary Care Provider: ELIEL Up Notes: Nurses Notes, Medications, Allergies Allergies: Coded Allergies: NO KNOWN ALLERGIES (Unverified , 05/06/21) Home Meds Active Scripts Cephalexin Monohydrate (Cephalexin) 500 Mg Cap, 1 CAP PO BID for 5 Days, #10 CAP Prov:KIMBERLY ROJAS RESIDENT 07/24/25 Pantoprazole Sodium Sesquihydr (Pantoprazole Sodium) 40 Mg Tab, 20 MG PO DAILY for 20 Days, #20 TAB Prov:KIMBERLY ROJAS RESIDENT 07/24/25 Ibuprofen (Ibuprofen) 400 Mg Tab, 1 TAB PO TID PRN for 14 Days, #42 TAB Prov:KIMBELRY ROJAS RESIDENT 07/24/25 Hydrocodone-Acetaminophen (Hydrocodone Bitartrate/AC 5-325 mg) 1 Tab Tab, 1 TAB PO Q6HPRN PRN for 10 Days, #40 TAB 0 Refills Prov:JONNY TUCKER NP 02/01/24 Information Source: Patient Mode of Arrival: Ambulatory Severity: Moderate Timing: Days Duration: Since onset Prehospital treatment: None Past Medical History PAST MEDICAL HISTORY: Kidney Stones 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 History Family History Family History: Reviewed,noncontributory to illness, Unknown Social History Smoker: Non-Smoker Alcohol: Denies ETOH Use Drugs: Denies Drug Use Lives In: Home All Other Systems: Reviewed and Negative (Comprehensive review of systems are negative as otherwise stated in HPI) Physical Exam General Appearance: Moderate Distress HEENT: Normal ENT Inspection, Pharynx Normal, TMs Normal Neck: Full Range of Motion, Non-Tender, Normal, Normal Inspection Respiratory: Chest Non-Tender, Lungs Clear, No Accessory Muscle Use, No Respiratory Distress, Normal Breath Sounds Cardiovascular: No Edema, No JVD, No Murmur, No Gallop, Normal Peripheral Pulses, Regular Rate/Rhythm Breast Exam: Deferred Gastrointestinal: Diffuse Genitalia: Deferred Pelvic: Deferred Rectal: Deferred Extremities: No calf tenderness, Normal capillary refill, Normal inspection, Normal range of motion, Non-tender, No pedal edema Musculoskeletal : Apperance: Normal Neurologic: Alert, field sales engineer II-XII nml as Tested, No Motor Deficits, Normal Affect, Normal Mood, No Sensory Deficits Cerebellar Function: Normal Reflexes: Normal Skin: Dry, Normal Color, Warm Peripheral Pulses: 3+ Radial (R), 3+ Radial (L) Lymphatic: No Adenopathy Was a procedure done? Was a procedure done?: No Differential Dx Considerations may include: Gastritis, gastroenteritis, GERD, cholelithiasis, cholecystitis, indigestion, spoiled food, viral syndrome, among others X-Ray, Labs, Meds, VS Vital Signs Date Time Temp Pulse Resp B/P (MAP) Pulse Ox O2 Delivery O2 Flow Rate FiO2 09/22/25 13:40 97.3 63 18 129/90 99 97.3 Lab Test 09/22/25 14:36 Range/Units White Blood Count 6.5 4.4-10.8 10^3/uL Red Blood Count 4.62 4.0-5.20 10^6/uL Hemoglobin 13.8 12.2-16.2 g/dL Hematocrit 40.8 36.0-46.0 % Mean Corpuscular Volume 88.2 80.0-100.0 fL Mean Corpuscular Hemoglobin 29.8 28.0-32.0 pg Mean Corpuscular Hemoglobin Concent 33.8 32.0-36.0 g/dL Red Cell Distribution Width 13.6 11.8-14.3 % Platelet Count 271 140-450 10^3/uL Mean Platelet Volume 8.2 6.9-10.8 fL Neutrophils (%) (Auto) 63.6 37.0-80.0 % Lymphocytes (%) (Auto) 28.0 10.0-50.0 % Monocytes (%) (Auto) 5.1 0.0-12.0 % Eosinophils (%) (Auto) 2.8 0.0-7.0 % Basophils (%) (Auto) 0.5 0.0-2.0 % Neutrophils # (Auto) 4.1 1.6-8.6 10 ^3/uL Lymphocytes # (Auto) 1.8 0.4-5.4 10 ^3/uL Monocytes # (Auto) 0.3 0-1.3 10 ^3/uL Eosinophils # (Auto) 0.2 0-0.8 10 ^3/uL Basophils # (Auto) 0 0-0.2 10 ^3/uL Nucleated Red Blood Cells 0.1 % Sodium Level 140 136-145 mmol/L Potassium Level 3.9 3.5-5.1 mmol/L Chloride Level 107 98-107 mmol/L Carbon Dioxide Level 25 20-31 mmol/L Anion Gap 8 5-15 Blood Urea Nitrogen 11 9-23 mg/dL Creatinine 0.77 0.550-1.02 mg/dL Glomerular Filtration Rate Calc 100 >90 mL/min BUN/Creatinine Ratio 14.3 10.0-20.0 Serum Glucose 91 74-106 mg/dL Calcium Level 10.1 8.7-10.4 mg/dL Lipase 43 12-53 U/L [place] [address] Ph: [phone] DIAGNOSTIC IMAGING Diagnostic Imaging Report : [id number] Signed PATIENT: CHAGO RIOS ACCT: [id number] UNIT: [id number] : 1985 LOC: ER ROOM / BED: / AGE / SEX: 39 / F ADM STATUS: REG ER SERVICE 1430 ORDERING PHYSICIAN: THANG ALMAZAN MD PROCEDURE(s): ABPL - CT AB PEL WO CON-NO ORAL OR IV REASON: gastritis ORDER NUMBER(s): [id number], ACCESSION NUMBER(s): [id number] CLINICAL INFORMATION: Gastritis. TECHNIQUE: Axial CT images of the abdomen and pelvis were obtained without IV contrast. Coronal and sagittal reformatted images were obtained, reviewed, and stored. Evaluation of the parenchymal organs is limited without IV contrast. Evaluation of the bowel and mesentery is limited without oral contrast. All CT scans at this medical facility are performed using dose modulation techniques as appropriate to a performed exam including the following: Automated exposure control was utilized; adjustment of the MA and/or KV according to patient size; and use of iterative reconstruction technique. CTDIvol = 12.87 mGy DLP = 614.98 mGy-cm COMPARISON: CT CT AB PEL WO CON-NO ORAL OR IV on DOS: 07/22/25 FINDINGS: Lung bases: Lung bases are clear. Liver: Grossly unremarkable in its noncontrast enhanced appearance. No abnormal density or focal lesion identified. Biliary: No calcified gallstones or biliary ductal dilatation. Spleen: Unremarkable. Pancreas: Grossly unremarkable in its noncontrast enhanced appearance. Adrenal glands: Unremarkable. No mass. Kidneys: There are punctate bilateral nonobstructing renal calculi. No hydronephrosis or obstructing calculi visualized. Aorta/Vascular: No aneurysm or significant calcification. Lymph nodes: No mass or lymphadenopathy. Bowel/mesentery: No small bowel obstruction. No free air or free fluid. Appendix is visualized and appears unremarkable. Scattered small colonic diverticula without adjacent inflammatory changes to suggest diverticulitis. Pelvic organs: Uterus is anteverted. Bladder: Unremarkable. No mass. Abdominal wall: No mass or hernia. Bones: No acute fracture or suspicious intraosseous lesion. IMPRESSION: 1. No acute abnormality identified in the abdomen or pelvis. 2. Scattered colonic diverticula without adjacent inflammatory changes to suggest diverticulitis. 3. Punctate nonobstructing renal calculi. No hydronephrosis or obstructing calculi. 4. Additional nonacute findings as described above. ATED BY: CADEN BERTRAND DO DICTATED DATE/TIME: 09/22/25 1504 SIGNED BY: CADEN BERTRAND DO SIGNED DATE/TIME: 09/22/25 1504 CC: Patient alert. Complaining of epigastric pain. Vitals stable. Answering questions. Continues to have discomfort. CT scan of the abdomen reviewed does show possible kidney stone. Possible gastroenteritis. Establish intravenous access. Was given fluids. Explained to the patient. Continue monitoring. Time of 1ST Reevaluation: 14:50 Reevaluation 1ST: Unchanged Patient Education/Counseling: Diagnosis, Treatment, Need For Follow Up Family Education/Counseling: No Family Present SEPSIS Sepsis Screen Date sepsis recognized/suspect: Sep 22, 2025 Time Sepsis recognized/suspect: 1342 Recent Procedure: No On Antibiotic Therapy: No Respiratory Rate >20: No Heart Rate >90: No Temp<36 C (96.8 F) or >38.3 C: No SBP <90 or MAP <65 mmHG: No New Acute Mental Status Change: No Is the patient on CPAP, BIPAP,: No Physician Orders Urinalysis (09/22/25 14:30) Ct Ab Pel Wo Con-No Oral Or Iv (09/22/25 14:30) Sodium Chloride 0.9% (09/22/25 16:00) Vital Signs Date Time Temp Pulse Resp B/P (MAP) Pulse Ox O2 Delivery O2 Flow Rate FiO2 09/22/25 13:40 97.3 63 18 129/90 99 97.3 Laboratory Tests Test 09/22/25 14:36 White Blood Count 6.5 10^3/uL (4.4-10.8) Departure 1 Departure Time of Disposition: 15:47 Impression: Primary Impression: Acute abdominal pain Additional Impressions: Gastritis Qualified Codes: K29.00 - Acute gastritis without bleeding Kidney stone Disposition: ADMITTED INPATIENT Admit to: Med Surg Condition: Guarded Critical Care Note Critical Care Time?: No Stability Stability form required: No Heart Score Heart Score: Heart Score Response (Comments) Value History N/A 0 EKG N/A 0 Age N/A 0 Risk Factors N/A 0 Troponin N/A 0 Total 0 I personally scribed for THANG ALMAZAN MD ([email or web address]) on 09/22/25 at 14:44. Electronically submitted by Sanjay Kimball ([email or web address]). I personally scribed for THANG ALMAZAN MD ([email or web address]) on 09/22/25 at 16:38. Electronically submitted by Sanjay Kimball ([email or web address]). THANG ALMAZAN MD Sep 22, 2025 14:44
[2025-09-22 14:45] LABS: Hematocrit 40.8 % (36.0-46.0); Hemoglobin 13.8 g/dL (12.2-16.2); Mean Corpuscular Hemoglobin 29.8 pg (28.0-32.0); Mean Corpuscular Volume 88.2 fL (80.0-100.0); Nucleated Red Blood Cells % 0.1 %
[2025-09-22 14:52] LABS: Potassium 3.9 mmol/L (3.5-5.1); Sodium 140 mmol/L (136-145)
[2025-09-22 14:53] LABS: Anion Gap 8 (5-15); Calcium 10.1 mg/dL (8.7-10.4); Carbon Dioxide 25 mmol/L (20-31); Chloride 107 mmol/L (98-107)
[2025-09-22 14:58] LABS: BUN/Creatinine Ratio 14.3 (10.0-20.0); Blood Urea Nitrogen 11 mg/dL (9-23); Glucose 91 mg/dL (74-106)
[2025-09-22] MEDS: SODIUM CHLORIDE 0.9% 1,000 ML IV ONE (15:00)
--- NOTE | 2025-09-22 15:07 | DVH ---
CLINICAL INFORMATION: Gastritis. TECHNIQUE: Axial CT images of the abdomen and pelvis were obtained without IV contrast. Coronal and s agittal reformatted images were obtained, reviewed, and stored. Evaluation of the parenchymal organs is limited without IV contrast. Evaluation of the bowel and mesentery is limited without oral contras t. All CT scans at this medical facility are performed using dose modulation techniques as appropriat e to a performed exam including the following: Automated exposure control was utilized; adjustment of the MA and/or KV according to patient size; and use of iterative reconstruction technique. CTDIvol = 12.87 mGy DLP = 614.98 mGy-cm COMPARISON: CT CT AB PEL WO CON-NO ORAL OR IV on DOS: 07/22/25 FINDINGS: Lung bases: Lung bases are clear. Liver: Grossly unremarkable in its noncontrast enhanced appearance. No abnormal density or focal lesi on identified. Biliary: No calcified gallstones or biliary ductal dilatation. Spleen: Unremarkable. Pancreas: Grossly unremarkable in its noncontrast enhanced appearance. Adrenal glands: Unremarkable. No mass. Kidneys: There are punctate bilateral nonobstructing renal calculi. No hydronephrosis or obstructing calculi visualized. Aorta/Vascular: No aneurysm or significant calcification. Lymph nodes: No mass or lymphadenopathy. Bowel/mesentery: No small bowel obstruction. No free air or free fluid. Appendix is visualized and ap pears unremarkable. Scattered small colonic diverticula without adjacent inflammatory changes to sug gest diverticulitis. Pelvic organs: Uterus is anteverted. Bladder: Unremarkable. No mass. Abdominal wall: No mass or hernia. Bones: No acute fracture or suspicious intraosseous lesion. IMPRESSION: 1. No acute abnormality identified in the abdomen or pelvis. 2. Scattered colonic diverticula without adjacent inflammatory changes to suggest diverticulitis. 3. Punctate nonobstructing renal calculi. No hydronephrosis or obstructing calculi. 4. Additional nonacute findings as described above.
[2025-09-22 15:08] LABS: Lipase 43 U/L (12-53)
[2025-09-22] MEDS: LIDOCAINE VISCOUS 2% 15ML UD PO ONE (17:11)
[2025-09-22] MEDS: MAALOX PLUS or MAALOX 30 ML PO ONE (17:12)
[2025-09-22] MEDS: DONNATAL 5ml ORAL Elix (BELLADONNA ALK-PHENOBARB) PO ONE (18:00)
[2025-09-22 19:07] LABS: Urine Protein, UAD Negative (Negative)
--- NOTE | 2025-09-22 20:39 | DVHHP2 ---
History of Present Illness Reason for Visit: Acute abdominal pain History of Present Illness The patient is a 39-year-old female with past medical history of kidney stones who presented to [facility] ED with complaint of epigastric abdominal pain. Patient reports that he has been experiencing acute abdominal pain for the past 5 days, radiating to her back, rating 10/10 numeric scale, associated with nausea, vomiting, getting worse that prompted this visit. Patient was seen and evaluated in the ED, laboratory data shows WBC 6.5, platelets 271, sodium 140, potassium 3.9, BUN 11, creatinine 0.77, glucose 91, calcium 10.1, lipase 43, blood pressure 115/62, heart rate 67, temperature 98.2 F, O2 saturation 99% on room air. Abdomen/pelvis CT revealing scattered colonic diverticula without adjacent inflammatory changes to suggest diverticulitis; punctate nonobstructing renal calculi, no hydronephrosis obstructing calculi; no acute abnormality identified in the abdomen or pelvis. Urinalysis positive for urinary tract infection. Please see medication orders section in the computer. On my assessment, patient denied chest pain, no headache, dizziness, diaphoresis, shortness of breaths, no abdominal pain at this moment, diarrhea, nausea, vomiting, fever, no chills. Patient was admitted for further evaluation and medical management. Past Medical History Kidney Stones Past Surgical History Family History Reviewed, noncontributory to the management of this case. Past Social History The patient lives at home, denies smoking, alcohol or illicit drugs abuse. Review of Systems Constitutional: Yes: Weakness; No: Fever, Chills, Sweats, Malaise, Other Eyes: No: Pain, Vision change, Conjunctivae inflammation, Eyelid inflammation, Other, Redness ENT: No: Ear pain, Ear discharge, Nose pain, Nose discharge, Nose congestion, Mouth pain, Mouth swelling, Throat pain, Throat swelling, Other Respiratory: No: Cough, Dry, Shortness of breath, SOB with excertion, Wheezing, Hemoptysis, Pleuritic Pain, Sputum, Wheezing, Other Cardiovascular: No: Chest Pain, Palpitations, Orthopnea, Paroxysmal Noc. Dyspnea, Edema, Lt Headedness, Other Gastrointestinal: Nausea, Vomiting, Abdominal Pain; No: Diarrhea, Constipation, Melena, Hematochezia, Other Genitourinary: No Dysuria, No Frequency, No Incontinence, No Hematuria, No Retention; Other (Flank pain) Musculoskeletal: back pain; No: other, neck pain, shoulder pain, arm pain, hand pain, leg pain, foot pain Skin: No: Rash, Lesions, Jaundice, Bruising, Other Neurological: No: Weakness, Numbness, Incoordination, Change in speech, Confusion, Seizures, Other Allergies: Coded Allergies: NO KNOWN ALLERGIES (Unverified , 05/06/21) Exam Vital Signs Vital Signs Date Time Temp Pulse Resp B/P (MAP) Pulse Ox O2 Delivery O2 Flow Rate FiO2 09/22/25 19:29 98.2 56 18 115/62 (79) 100 98.2 09/22/25 17:03 Room Air General Appearance: Alert, Oriented X3, Cooperative, No acute distress HEENT: Atraumatic, PERRLA, EOMI, Mucous membr. moist/pink Respiratory: Normal air movement Cardiovascular: Regular rate, Normal S1, Normal S2, No murmurs Abdominal: Normal bowel sounds, Soft, No hepatospenomegaly, No masses, Other (Reports tenderness) Extremities: No clubbing, No cyanosis, No edema, Normal pulses, No te nderness/swelling Skin: No rashes, No breakdown, No significant lesion Neuro: Normal speech, Normal tone, Sensation intact, Cranial nerves 3-12 NL, Reflexes 2+, Other (Generalized weakness) Psych/Mental Status: Mental status NL, Mood NL Labs/Xrays Labs Test 09/22/25 17:21 09/22/25 14:36 Range/Units Urine Color Yellow Yellow Urine Clarity Turbid H Clear Urine pH 5.5 5.0-9.0 Urine Specific [place] 1.026 1.001-1.035 Urine Protein Negative Negative Urine Ketones 1+ H Negative Urine Blood Negative Negative /uL Urine Nitrite Negative Negative Urine Bilirubin Negative Negative Urine Urobilinogen Normal Negative mg/dL Urine Leukocyte Esterase 2+ Negative /uL Urine RBC 8 0 - 4 /hpf Urine Microscopic WBC 63 H 0-5 /HPF Urine Squamous Epithelial Cells Few <5 /hpf Urine Calcium Oxalate Crystals Few None Seen Urine Bacteria Many H None Seen /hpf Urine Mucus Few None Seen Urine Glucose Normal Normal mg/dL White Blood Count 6.5 4.4-10.8 10^3/uL Red Blood Count 4.62 4.0-5.20 10^6/uL Hemoglobin 13.8 12.2-16.2 g/dL Hematocrit 40.8 36.0-46.0 % Mean Corpuscular Volume 88.2 80.0-100.0 fL Mean Corpuscular Hemoglobin 29.8 28.0-32.0 pg Mean Corpuscular Hemoglobin Concent 33.8 32.0-36.0 g/dL Red Cell Distribution Width 13.6 11.8-14.3 % Platelet Count 271 140-450 10^3/uL Mean Platelet Volume 8.2 6.9-10.8 fL Neutrophils (%) (Auto) 63.6 37.0-80.0 % Lymphocytes (%) (Auto) 28.0 10.0-50.0 % Monocytes (%) (Auto) 5.1 0.0-12.0 % Eosinophils (%) (Auto) 2.8 0.0-7.0 % Basophils (%) (Auto) 0.5 0.0-2.0 % Neutrophils # (Auto) 4.1 1.6-8.6 10 ^3/uL Lymphocytes # (Auto) 1.8 0.4-5.4 10 ^3/uL Monocytes # (Auto) 0.3 0-1.3 10 ^3/uL Eosinophils # (Auto) 0.2 0-0.8 10 ^3/uL Basophils # (Auto) 0 0-0.2 10 ^3/uL Nucleated Red Blood Cells 0.1 % Sodium Level 140 136-145 mmol/L Potassium Level 3.9 3.5-5.1 mmol/L Chloride Level 107 98-107 mmol/L Carbon Dioxide Level 25 20-31 mmol/L Anion Gap 8 5-15 Blood Urea Nitrogen 11 9-23 mg/dL Creatinine 0.77 0.550-1.02 mg/dL Glomerular Filtration Rate Calc 100 >90 mL/min BUN/Creatinine Ratio 14.3 10.0-20.0 Serum Glucose 91 74-106 mg/dL Calcium Level 10.1 8.7-10.4 mg/dL Lipase 43 12-53 U/L PATIENT: CHAGO RIOS ACCT: [id number] UNIT: [id number] : 1985 LOC: ER ROOM / BED: / AGE / SEX: 39 / F ADM STATUS: REG ER SERVICE 1430 ORDERING PHYSICIAN: THANG ALMAZAN MD PROCEDURE(s): ABPL - CT AB PEL WO CON-NO ORAL OR IV REASON: gastritis ORDER NUMBER(s): [id number], ACCESSION NUMBER(s): [id number] CLINICAL INFORMATION: Gastritis. TECHNIQUE: Axial CT images of the abdomen and pelvis were obtained without IV contrast. Coronal and sagittal reformatted images were obtained, reviewed, and stored. Evaluation of the parenchymal organs is limited without IV contrast. Evaluation of the bowel and mesentery is limited without oral contrast. All CT scans at this medical facility are performed using dose modulation techniques as appropriate to a performed exam including the following: Automated exposure control was utilized; adjustment of the MA and/or KV according to patient size; and use of iterative reconstruction technique. CTDIvol = 12.87 mGy DLP = 614.98 mGy-cm COMPARISON: CT CT AB PEL WO CON-NO ORAL OR IV on DOS: 07/22/25 FINDINGS: Lung bases: Lung bases are clear. Liver: Grossly unremarkable in its noncontrast enhanced appearance. No abnormal density or focal lesion identified. Biliary: No calcified gallstones or biliary ductal dilatation. Spleen: Unremarkable. Pancreas: Grossly unremarkable in its noncontrast enhanced appearance. Adrenal glands: Unremarkable. No mass. Kidneys: There are punctate bilateral nonobstructing renal calculi. No hydronephrosis or obstructing calculi visualized. Aorta/Vascular: No aneurysm or significant calcification. Lymph nodes: No mass or lymphadenopathy. Bowel/mesentery: No small bowel obstruction. No free air or free fluid. Appendix is visualized and appears unremarkable. Scattered small colonic diverticula without adjacent inflammatory changes to suggest diverticulitis. Pelvic organs: Uterus is anteverted. Bladder: Unremarkable. No mass. Abdominal wall: No mass or hernia. Bones: No acute fracture or suspicious intraosseous lesion. IMPRESSION: 1. No acute abnormality identified in the abdomen or pelvis. 2. Scattered colonic diverticula without adjacent inflammatory changes to suggest diverticulitis. 3. Punctate nonobstructing renal calculi. No hydronephrosis or obstructing calculi. 4. Additional nonacute findings as described above. SEPSIS Sepsis Screen Date sepsis recognized/suspect: Sep 22, 2025 Time Sepsis recognized/suspect: 1342 Recent Procedure: No On Antibiotic Therapy: No Respiratory Rate >20: No Heart Rate >90: No Temp<36 C (96.8 F) or >38.3 C: No SBP <90 or MAP <65 mmHG: No New Acute Mental Status Change: No Is the patient on CPAP, BIPAP,: No Physician Orders Ct Ab Pel Wo Con-No Oral Or Iv (09/22/25 14:30) Admit (09/22/25 20:36) Allergies (09/22/25 20:36) Code Status (09/22/25 20:36) 0.9% Ns 1000 Ml (09/22/25 20:45) Oxygen Per Hour (09/22/25 20:36) Hydrocodone-Acet 5/325mg Tab (Circle 5/32 (09/22/25 20:45) Ondansetron Hcl (Zofran) (09/22/25 20:45) Docusate Sodium Capsule (Colace Capsule) (09/22/25 20:45) Complete Blood Count (09/23/25 04:00) Comprehensive Metabolic Panel (09/23/25 04:00) Condition: Serious (09/22/25 20:36) Acetaminophen Tablet (Tylenol Tablet) (09/22/25 20:45) Clear Liq Diet (09/23/25 Breakfast) Bedrest With Bathroom Privileg (09/22/25 20:36) Morphine Sulfate Injection (09/22/25 20:45) Sequential Compression Device (09/22/25 ) Nitroglycerin Sublingual (Ntrostat Subli (09/22/25 20:45) Morphine Sulfate Injection (09/22/25 20:45) Notify Of Changes From Base (09/22/25 20:36) Emergency Dysrhythmia Protocol (09/22/25 20:36) Oxygen By Nasal Cannula (09/22/25 20:36) Vital Signs Date Time Temp Pulse Resp B/P (MAP) Pulse Ox O2 Delivery O2 Flow Rate FiO2 09/22/25 19:29 98.2 56 18 115/62 (79) 100 98.2 09/22/25 17:03 67 18 100 Room Air 09/22/25 17:03 98.2 67 18 121/78 (92) 100 98.2 09/22/25 13:40 97.3 63 18 129/90 99 97.3 Laboratory Tests Test 09/22/25 14:36 White Blood Count 6.5 10^3/uL (4.4-10.8) Medications Medications Dose Ordered Sig/Kisha Route Start Time Stop Time Status Last Admin Dose Admin Al Hydrox/Mg Hydrox/Simethicone 30 ml ONCE ONCE PO 09/22/25 16:00 09/22/25 16:01 DC 09/22/25 17:12 30 ML Belladonna Alkaloids/ Phenobarbital 10 ml ONCE ONCE PO 09/22/25 16:00 09/22/25 16:01 DC 09/22/25 18:00 10 ML Lidocaine HCl 15 ml ONCE ONCE PO 09/22/25 16:00 09/22/25 16:01 DC 09/22/25 17:11 15 ML Sodium Chloride 1,000 ml @ 1,000 mls/hr Q1H ONCE IV 09/22/25 16:00 09/22/25 16:59 DC 09/22/25 15:00 1,000 MLS/HR Assessment/Plan Assessment/Plan Acute abdominal pain Kidney stone Urinary tract infection Acute gastritis without bleeding Generalized weakness Plan 1. Admit to med surge unit 2. Breathing treatment 3. Pain control management 4. IV antibiotic management 5. Management of fluids and electrolytes 6. Consultation for hospitalist 7. Diagnostic test abdomen/pelvis CT 8. DVT prophylaxis-on SCDs 9. Repeat labs CBC, CMP in a.m. 10. Home medication reviewed and reconciled 11. Continue with current medical management 12. Treatment plan discussed with patient and RN. Patient verbalized understanding. Plan discussed with: Patient, Other (RN) My Orders Orders - HUSSEIN MARSH DNP Procedure Category Date Status Time Admit ADMIT 09/22/25 Verified 20:36 Allergies HAWK 09/22/25 Verified 20:36 Code Status CODE 09/22/25 Verified 20:36 0.9% Ns 1000 Ml PHA 09/22/25 Verified 20:45 Oxygen Per Hour RT 09/22/25 Verified 20:36 Hydrocodone-Acet PHA 09/22/25 Verified 5/325mg Tab (Circle 20:45 Ondansetron Hcl PHA 09/22/25 Verified (Zofran) 20:45 Docusate Sodium PHA 09/22/25 Verified Capsule (Colace 20:45 Complete Blood Count LAB 09/23/25 Verified 04:00 Comprehensive LAB 09/23/25 Verified Metabolic Panel 04:00 Condition: Serious HAWK 09/22/25 Verified 20:[address] [facility] 09/22/25 Verified (Tylenol Tablet) 20:45 Clear Liq Diet DIET 09/23/25 Verified Breakfast Bedrest With Bathroom [facility] 09/22/25 Verified Privileg 20:[address] [facility] 09/22/25 Verified Injection 20:45 Sequential [facility] 09/22/25 Verified Compression Device Nitroglycerin [facility] 09/22/25 Verified Sublingual (Ntrostat 20:[address] [facility] 09/22/25 Verified Injection 20:45 Notify Md Of Changes [facility] 09/22/25 Verified From Base 20:36 Emergency Dysrhythmia [facility] 09/22/25 Verified Protocol 20:36 Oxygen By Nasal 09/22/25 Verified Cannula 20:36 Problem List: (1) Acute abdominal pain (2) Kidney stone (3) UTI (urinary tract infection) (4) Acute gastritis without bleeding (5) Generalized weakness Date of Service: Sep 22, 2025 Billing Provider: HUSSEIN MARSH DNP Common Visit Codes: [id number] INP/OBS CARE (HIGH) HUSSEIN MARSH DNP Sep 22, 2025 20:39
[2025-09-22] MEDS ORDERED: ACETAMINOPHEN 325 MG TAB PO PRN (20:45)
[2025-09-22] MEDS ORDERED: DOCUSATE SOD 100 MG CAP PO PRN (20:45)
[2025-09-22] MEDS ORDERED: ONDANSETRON HCL 4 MG/2 ML VIAL IV PRN (20:45)
[2025-09-22] MEDS ORDERED: NITROGLYCERIN 0.4 MG SL TAB SL PRN (20:45)
[2025-09-22] MEDS ORDERED: MORPHINE SULFATE INJ 2 MG/ml SYRG IV PRN ×2 (20:45)
[2025-09-22 21:00] VITALS: BP 116/81; PULSE 58; RESP 18; TEMP 97.1; O2SAT 100
[2025-09-22] MEDS: SODIUM CHLORIDE 0.9% 1,000 ML IV SCH (22:59)
[2025-09-22] MEDS: HYDROcodone-ACET 5/325MG TAB PO PRN (23:01)
[2025-09-23] VITALS (9 sets, daily range): BP systolic 97–120; BP diastolic 56–84; PULSE 57–66; RESP 16–18; TEMP 97–98.2; O2SAT 95–100
[2025-09-23 06:23] LABS: Hematocrit 38.9 % (36.0-46.0); Hemoglobin 13.2 g/dL (12.2-16.2); Mean Corpuscular Hemoglobin 29.9 pg (28.0-32.0); Mean Corpuscular Volume 88.1 fL (80.0-100.0); Nucleated Red Blood Cells % 0.0 %
[2025-09-23 06:35] LABS: Alanine Aminotransferase 15 U/L (7-40); Alkaline Phosphatase 80 U/L (46-116); Anion Gap 8 (5-15); BUN/Creatinine Ratio 18.2 (10.0-20.0); Blood Urea Nitrogen 10 mg/dL (9-23); Calcium 9.6 mg/dL (8.7-10.4); Carbon Dioxide 24 mmol/L (20-31); Glucose 79 mg/dL (74-106); Potassium 3.9 mmol/L (3.5-5.1); Sodium 139 mmol/L (136-145); Total Protein 6.3 g/dL (5.7-8.2)
[2025-09-23 06:36] LABS: Albumin 3.7 g/dL (3.2-4.8); Bilirubin, Total 1.0 mg/dL (0.2-1.0)
[2025-09-23 06:37] LABS: Chloride 107 mmol/L (98-107)
--- NOTE | 2025-09-23 18:22 | DVHPN2 ---
Subjective No pain Reviewed: H&P Changes from previous H/P or p: No Changes Eyes: No Pain, No Vision change, No Conjunctivae inflammation, No Eyelid inflammation, No Other, No Redness ENT: No Ear pain, No Ear discharge, No Nose pain, No Nose discharge, No Nose congestion, No Mouth pain, No Mouth swelling, No Throat pain, No Throat swelling, No Other Cardiovascular: No Chest Pain, No Palpitations, No Orthopnea, No Paroxysmal Noc. Dyspnea, No Edema, No Lt Headedness, No Other Respiratory: No Cough, No Dry, No Shortness of breath, No SOB with excertion, No Wheezing, No Hemoptysis, No Pleuritic Pain, No Sputum, No Other Gastrointestinal: Nausea, Vomiting, Abdominal Pain; No Diarrhea, No Constipation, No Melena, No Hematochezia, No Other Genitourinary: No Dysuria, No Frequency, No Incontinence, No Hematuria, No Retention; Other (Flank pain) Musculoskeletal: No other, No neck pain, No shoulder pain, No arm pain; back pain; No hand pain, No leg pain, No foot pain Skin: No Rash, No Lesions, No Jaundice, No Bruising, No Other Objective Vitals Vital Signs Date Time Temp Pulse Resp B/P (MAP) Pulse Ox O2 Delivery O2 Flow Rate FiO2 09/23/25 17:08 97.7 66 16 108/71 (83) 98 97.7 09/23/25 08:05 Room Air* 0 21 Intake/Output Intake and Output 09/23/25 05:00 Intake Total 390 ml Balance 390 ml Intake Oral 340 ml IV Total 50 ml # Voids 1 General Appearance: Alert, Oriented X3 Lungs: Clear to auscultation Cardiovascular: Regular rate, Normal S1, Normal S2 Abdomen: Normal bowel sounds Medications Current Medications Medications Dose Ordered Sig/Kisha Route Start Time Stop Time Status Last Admin Dose Admin Sodium Chloride 1,000 ml @ 60 mls/hr [id number] IV 09/22/25 20:45 09/23/25 13:25 60 MLS/HR Acetaminophen/ Hydrocodone Bitart 1 tab Q4HP PRN PO 09/22/25 20:45 09/22/25 23:01 1 TAB Ondansetron HCl 4 mg Q4HP PRN IV 09/22/25 20:45 Docusate Sodium 100 mg BIDPRN PRN PO 09/22/25 20:45 Acetaminophen 650 mg Q6HP PRN PO 09/22/25 20:45 Morphine Sulfate 2 mg Q4HPRN PRN IV 09/22/25 20:45 Nitroglycerin 0.4 mg Q5MINP PRN SL 09/22/25 20:45 Morphine Sulfate 2 mg Q30M PRN IV 09/22/25 20:45 Ceftriaxone Sodium 50 ml @ 100 mls/hr DAILY@2100 IV 09/23/25 21:00 Laboratory Results Laboratory Tests 09/23/25 05:14 Chemistry Test 09/23/25 05:14 Albumin 3.7 g/dL (3.2-4.8) Calcium Level 9.6 mg/dL (8.7-10.4) Total Protein 6.3 g/dL (5.7-8.2) LFT Test 09/23/25 05:14 Alanine Aminotransferase (ALT) 15 U/L (7-40) Alkaline Phosphatase 80 U/L (46-116) Aspartate Amino Transferase (AST) 17 U/L (13-40) Total Bilirubin 1.0 mg/dL (0.2-1.0) Urinalysis Test 09/22/25 17:21 Urine Color Yellow (Yellow) Urine Clarity Turbid (Clear) H Urine pH 5.5 (5.0-9.0) Urine Specific [place] 1.026 (1.001-1.035) Urine Protein Negative (Negative) Urine Ketones 1+ (Negative) H Urine Blood Negative /uL (Negative) Urine Nitrite Negative (Negative) Urine Bilirubin Negative (Negative) Urine Urobilinogen Normal mg/dL (Negative) Urine Leukocyte Esterase 2+ /uL (Negative) Urine RBC 8 /hpf (0 - 4) Urine Microscopic WBC 63 /HPF (0-5) H Urine Squamous Epithelial Cells Few /hpf (<5) Urine Calcium Oxalate Crystals Few (None Seen) Urine Bacteria Many /hpf (None Seen) H Urine Mucus Few (None Seen) Urine Glucose Normal mg/dL (Normal) Microbiology Microbiology Date/Time Source Procedure Growth Status 09/22/25 17:21 Voided Urine Urine Culture - Preliminary Resulted Assessment/Plan Assessment/Plan Acute abdominal pain Kidney stone Urinary tract infection Acute gastritis without bleeding Generalized weakness Pending urology consult IV abx Dispo: Possible DC tomorrow Plan discussed with: Patient Date of Service: Sep 23, 2025 Billing Provider: MARISOL,NURIS J MD Common Visit Codes: [id number] INP/OBS CARE(HIGH) NURIS DAMON MD Sep 23, 2025 18:22
[2025-09-24] VITALS (7 sets, daily range): BP systolic 105–119; BP diastolic 55–67; PULSE 55–71; RESP 16–17; TEMP 36.3; O2SAT 97–99
--- NOTE | 2025-09-24 11:44 | DVHINCON2 ---
Date of service: Sep 24, 2025 Referring Physician Hospitalist Reason for Consultation flank pain History of Present Illness History Source: Patient, RN Notes, MD Notes Exam Limitations: No limitations HPI 39-year-old, obese female presents with chief complaint of epigastric abdominal pain. Patients reports on pain worsening, suddenly, over the past 2 days following initial, unprovoked and atraumatic onset of 09/17/2025. Pain radiates, directly, to her back and is rated a 10/10 in severity. Patient also endorses on vomiting 1x, yesterday, only. No reported recent prior ailments, sick contact exposure, spoiled food consumption, travel, or further pertinent events/medical or surgical history. Denies any nausea, vomiting, diarrhea, constipation, urinary problems, or further acute symptoms. Chief Complaint: Abdominal Pain Time Seen by MD: 14:20 Primary Care Provider: ELIEL Up Notes: Nurses Notes, Medications, Allergies Allergies: Coded Allergies: NO KNOWN ALLERGIES (Unverified , 05/06/21) Home Meds Active Scripts Cephalexin Monohydrate (Cephalexin) 500 Mg Cap, 1 CAP PO BID for 5 Days, #10 CAP Prov:KIMBERLY ROJAS RESIDENT 07/24/25 Pantoprazole Sodium Sesquihydr (Pantoprazole Sodium) 40 Mg Tab, 20 MG PO DAILY for 20 Days, #20 TAB Prov:KIMBERLY ROJAS RESIDENT 07/24/25 Ibuprofen (Ibuprofen) 400 Mg Tab, 1 TAB PO TID PRN for 14 Days, #42 TAB Prov:KIMBERLY ROJAS RESIDENT 07/24/25 Hydrocodone-Acetaminophen (Hydrocodone Bitartrate/AC 5-325 mg) 1 Tab Tab, 1 TAB PO Q6HPRN PRN for 10 Days, #40 TAB 0 Refills Prov:JONNY TUCKER [employer] 02/01/24 Past Medical History Patient Family History: Diabetes mellitus G8 MOTHER Review of Systems Genitourinary: Pain H&P Exam Vital Signs Vital Signs Date Time Temp Pulse Resp B/P (MAP) Pulse Ox O2 Delivery O2 Flow Rate FiO2 09/24/25 08:58 97.9 57 16 105/64 (78) 98 97.9 09/24/25 07:57 Room Air* 0 21 General Appeara: Well developed, Well nourished, Normal Appearance, Obese Neuro/Mental St: Alert, Oriented Appearance: Appropriate appearance, Appropriate insight Eye contact/ Speech: Cooperative, Good eye contact, Normal speech Skin Exam: Normal inspection, Normal color, Warm/dry Labs/Xrays [address] [address] Ph: [phone] DIAGNOSTIC IMAGING Diagnostic Imaging Report : [id number] Signed PATIENT: CHAGO RIOS ACCT: [id number] UNIT: [id number] : 1985 LOC: ER ROOM / BED: / AGE / SEX: 39 / F ADM STATUS: REG ER SERVICE 1430 ORDERING PHYSICIAN: THANG ALMAZAN MD PROCEDURE(s): ABPL - CT AB PEL WO CON-NO ORAL OR IV REASON: gastritis ORDER NUMBER(s): [id number], ACCESSION NUMBER(s): [id number] CLINICAL INFORMATION: Gastritis. TECHNIQUE: Axial CT images of the abdomen and pelvis were obtained without IV contrast. Coronal and sagittal reformatted images were obtained, reviewed, and stored. Evaluation of the parenchymal organs is limited without IV contrast. Evaluation of the bowel and mesentery is limited without oral contrast. All CT scans at this medical facility are performed using dose modulation techniques as appropriate to a performed exam including the following: Automated exposure control was utilized; adjustment of the MA and/or KV according to patient size; and use of iterative reconstruction technique. CTDIvol = 12.87 mGy DLP = 614.98 mGy-cm COMPARISON: CT CT AB PEL WO CON-NO ORAL OR IV on DOS: 07/22/25 FINDINGS: Lung bases: Lung bases are clear. Liver: Grossly unremarkable in its noncontrast enhanced appearance. No abnormal density or focal lesion identified. Biliary: No calcified gallstones or biliary ductal dilatation. Spleen: Unremarkable. Pancreas: Grossly unremarkable in its noncontrast enhanced appearance. Adrenal glands: Unremarkable. No mass. Kidneys: There are punctate bilateral nonobstructing renal calculi. No hydronephrosis or obstructing calculi visualized. Aorta/Vascular: No aneurysm or significant calcification. Lymph nodes: No mass or lymphadenopathy. Bowel/mesentery: No small bowel obstruction. No free air or free fluid. Appendix is visualized and appears unremarkable. Scattered small colonic diverticula without adjacent inflammatory changes to suggest diverticulitis. Pelvic organs: Uterus is anteverted. Bladder: Unremarkable. No mass. Abdominal wall: No mass or hernia. Bones: No acute fracture or suspicious intraosseous lesion. IMPRESSION: 1. No acute abnormality identified in the abdomen or pelvis. 2. Scattered colonic diverticula without adjacent inflammatory changes to suggest diverticulitis. 3. Punctate nonobstructing renal calculi. No hydronephrosis or obstructing calculi. 4. Additional nonacute findings as described above. ATED BY: CADEN BERTRAND DO DICTATED DATE/TIME: 09/22/25 1504 SIGNED BY: CADEN BERTRAND DO SIGNED DATE/TIME: 09/22/25 1504 CC: Labs Test 09/23/25 05:14 09/22/25 17:21 09/22/25 14:36 Range/Units White Blood Count 6.4 4.4-10.8 10^3/uL Red Blood Count 4.41 4.0-5.20 10^6/uL Hemoglobin 13.2 12.2-16.2 g/dL Hematocrit 38.9 36.0-46.0 % Mean Corpuscular Volume 88.1 80.0-100.0 fL Mean Corpuscular Hemoglobin 29.9 28.0-32.0 pg Mean Corpuscular Hemoglobin Concent 34.0 32.0-36.0 g/dL Red Cell Distribution Width 13.5 11.8-14.3 % Platelet Count 245 140-450 10^3/uL Mean Platelet Volume 8.6 6.9-10.8 fL Neutrophils (%) (Auto) 67.2 37.0-80.0 % Lymphocytes (%) (Auto) 24.9 10.0-50.0 % Monocytes (%) (Auto) 5.2 0.0-12.0 % Eosinophils (%) (Auto) 2.1 0.0-7.0 % Basophils (%) (Auto) 0.6 0.0-2.0 % Neutrophils # (Auto) 4.3 1.6-8.6 10 ^3/uL Lymphocytes # (Auto) 1.6 0.4-5.4 10 ^3/uL Monocytes # (Auto) 0.3 0-1.3 10 ^3/uL Eosinophils # (Auto) 0.1 0-0.8 10 ^3/uL Basophils # (Auto) 0 0-0.2 10 ^3/uL Nucleated Red Blood Cells 0.0 % Sodium Level 139 136-145 mmol/L Potassium Level 3.9 3.5-5.1 mmol/L Chloride Level 107 98-107 mmol/L Carbon Dioxide Level 24 20-31 mmol/L Anion Gap 8 5-15 Blood Urea Nitrogen 10 9-23 mg/dL Creatinine 0.55 0.550-1.02 mg/dL Glomerular Filtration Rate Calc 119 >90 mL/min BUN/Creatinine Ratio 18.2 10.0-20.0 Serum Glucose 79 74-106 mg/dL Calcium Level 9.6 8.7-10.4 mg/dL Total Bilirubin 1.0 0.2-1.0 mg/dL Aspartate Amino Transferase (AST) 17 13-40 U/L Alanine Aminotransferase (ALT) 15 7-40 U/L Alkaline Phosphatase 80 46-116 U/L Total Protein 6.3 5.7-8.2 g/dL Albumin 3.7 3.2-4.8 g/dL Urine Color Yellow Yellow Urine Clarity Turbid H Clear Urine pH 5.5 5.0-9.0 Urine Specific [place] 1.026 1.001-1.035 Urine Protein Negative Negative Urine Ketones 1+ H Negative Urine Blood Negative Negative /uL Urine Nitrite Negative Negative Urine Bilirubin Negative Negative Urine Urobilinogen Normal Negative mg/dL Urine Leukocyte Esterase 2+ Negative /uL Urine RBC 8 0 - 4 /hpf Urine Microscopic WBC 63 H 0-5 /HPF Urine Squamous Epithelial Cells Few <5 /hpf Urine Calcium Oxalate Crystals Few None Seen Urine Bacteria Many H None Seen /hpf Urine Mucus Few None Seen Urine Glucose Normal Normal mg/dL Lipase 43 12-53 U/L Microbiology Date/Time Source Procedure Growth Status 09/22/25 17:21 Voided Urine Urine Culture - Preliminary Resulted Assessment/Plan Problem List: (1) Kidney stone (2) Right flank pain Plan cleared from urology standpoint no intervention indicated. increase fluids NSAIDs prn Plan discussed with: YURIDIA Becerra NP Sep 24, 2025 11:43
--- NOTE | 2025-09-24 13:04 | DVHDS2 ---
Discharge Summary Date of Admission Sep 22, 2025 at 20:36 Date of Discharge: Sep 24, 2025 Labs/Diagnostic Data: Laboratory Results Test 09/23/25 05:14 09/22/25 17:21 09/22/25 14:36 White Blood Count 6.4 10^3/uL (4.4-10.8) Red Blood Count 4.41 10^6/uL (4.0-5.20) Hemoglobin 13.2 g/dL (12.2-16.2) Hematocrit 38.9 % (36.0-46.0) Mean Corpuscular Volume 88.1 fL (80.0-100.0) Mean Corpuscular Hemoglobin 29.9 pg (28.0-32.0) Mean Corpuscular Hemoglobin Concent 34.0 g/dL (32.0-36.0) Red Cell Distribution Width 13.5 % (11.8-14.3) Platelet Count 245 10^3/uL (140-450) Mean Platelet Volume 8.6 fL (6.9-10.8) Neutrophils (%) (Auto) 67.2 % (37.0-80.0) Lymphocytes (%) (Auto) 24.9 % (10.0-50.0) Monocytes (%) (Auto) 5.2 % (0.0-12.0) Eosinophils (%) (Auto) 2.1 % (0.0-7.0) Basophils (%) (Auto) 0.6 % (0.0-2.0) Neutrophils # (Auto) 4.3 10 ^3/uL (1.6-8.6) Lymphocytes # (Auto) 1.6 10 ^3/uL (0.4-5.4) Monocytes # (Auto) 0.3 10 ^3/uL (0-1.3) Eosinophils # (Auto) 0.1 10 ^3/uL (0-0.8) Basophils # (Auto) 0 10 ^3/uL (0-0.2) Nucleated Red Blood Cells 0.0 % Sodium Level 139 mmol/L (136-145) Potassium Level 3.9 mmol/L (3.5-5.1) Chloride Level 107 mmol/L (98-107) Carbon Dioxide Level 24 mmol/L (20-31) Anion Gap 8 (5-15) Blood Urea Nitrogen 10 mg/dL (9-23) Creatinine 0.55 mg/dL (0.550-1.02) Glomerular Filtration Rate Calc 119 mL/min (>90) BUN/Creatinine Ratio 18.2 (10.0-20.0) Serum Glucose 79 mg/dL (74-106) Calcium Level 9.6 mg/dL (8.7-10.4) Total Bilirubin 1.0 mg/dL (0.2-1.0) Aspartate Amino Transferase (AST) 17 U/L (13-40) Alanine Aminotransferase (ALT) 15 U/L (7-40) Alkaline Phosphatase 80 U/L (46-116) Total Protein 6.3 g/dL (5.7-8.2) Albumin 3.7 g/dL (3.2-4.8) Urine Color Yellow (Yellow) Urine Clarity Turbid (Clear) Urine pH 5.5 (5.0-9.0) Urine Specific Black 1.026 (1.001-1.035) Urine Protein Negative (Negative) Urine Ketones 1+ (Negative) Urine Blood Negative /uL (Negative) Urine Nitrite Negative (Negative) Urine Bilirubin Negative (Negative) Urine Urobilinogen Normal mg/dL (Negative) Urine Leukocyte Esterase 2+ /uL (Negative) Urine RBC 8 /hpf (0 - 4) Urine Microscopic WBC 63 /HPF (0-5) Urine Squamous Epithelial Cells Few /hpf (<5) Urine Calcium Oxalate Crystals Few (None Seen) Urine Bacteria Many /hpf (None Seen) Urine Mucus Few (None Seen) Urine Glucose Normal mg/dL (Normal) Lipase 43 U/L (12-53) Other Laboratory Tests 09/23/25 05:14 Brief Hx & Hospital Course: 39-year-old female with past medical history of kidney stones who presented to [facility] ED with complaint of epigastric abdominal pain. Patient reports that he has been experiencing acute abdominal pain for the past 5 days, radiating to her back, rating 10/10 numeric scale, associated with nausea, vomiting, getting worse that prompted this visit. Patient was seen and evaluated in the ED, laboratory data shows WBC 6.5, platelets 271, sodium 140, potassium 3.9, BUN 11, creatinine 0.77, glucose 91, calcium 10.1, lipase 43, blood pressure 115/62, heart rate 67, temperature 98.2 F, O2 saturation 99% on room air. Abdomen/pelvis CT revealing scattered colonic diverticula without adjacent inflammatory changes to suggest diverticulitis; punctate nonobstructing renal calculi, no hydronephrosis obstructing calculi; no acute abnormality identified in the abdomen or pelvis. Urinalysis positive for urinary tract infection. Please see medication orders section in the computer. On my assessment, patient denied chest pain, no headache, dizziness, diaphoresis, shortness of breaths, no abdominal pain at this moment, diarrhea, nausea, vomiting, fever, no chills. Patient was admitted for further evaluation and medical management. Treated for UTI Seen by urology for non obstructing calculi and no interventions Condition at Discharge: Good Final Diagnosis/Problems List UTI Kidney stone Urinary tract infection Acute gastritis without bleeding Generalized weakness Discharge Disposition: Home Discharge Instruct/Medications Diet: Regular Activity: No Restrictions, As Tolerated Follow Up/Referral: PCp in 7 days Medications: home medications Scheduled Cephalexin Monohydrate (Cephalexin), 1 CAP PO BID Pantoprazole Sodium Sesquihydr (Pantoprazole Sodium), 20 MG PO DAILY Scheduled PRN Hydrocodone-Acetaminophen (Hydrocodone Bitartrate/AC 5-325 mg), 1 TAB PO Q6HPRN PRN Ibuprofen (Ibuprofen), 1 TAB PO TID PRN Discharge Statement: "Patient was advised to return to the ER or call 911 if any headaches, dizziness, shortness of breath, chest pain, abdominal pain, bleeding, fevers, or worsening of medical condition. Patient was counseled about treatment plan, medications, possible side effects, patientverbalized understanding. All questions were answered to the best of my ability. This discharge took greater then 30 minutes in planning, reviewing documentation, counseling the patient, and discussing with other team members." ASSESSMENT ASSESSMENT Assessment Date of Service: Sep 24, 2025 Billing Provider: NURIS DAMON MD Common Visit Codes: 15761-IEX/OBS DISCH DAY >30min NURIS DAMON MD Sep 24, 2025 13:04
== END 2025-09-24 17:00 | disposition home or self-care (01) | DRG 690 ==
LOC: ER 13:39 → OVERFLOW 20:36 → WEST WING 22:05
PROVIDERS: ADMIT Hospitalist; ATTEND Hospitalist
DX: N30.00 Acute cystitis without hematuria (principal); K29.00 Acute gastritis without bleeding; K57.30 Diverticulosis of large intestine without perforation or abscess without bleeding; N20.0 Calculus of kidney; Z87.442 Personal history of urinary calculi; Z83.3 Family history of diabetes mellitus
CPT/HCPCS: 36415; 74176; 80048; 80053; 81001; 83690; 85025; 87086; 96361; 96365; G0378